=== PATIENT | male | born 1960 | race Caucasian/White ===

== ENCOUNTER 2020-10-25 08:58 | Observation (INO) | payer MEDICARE, SELFPAY ==
[2020-10-25] VITALS (7 sets, daily range): BP systolic 135–165; BP diastolic 86–108; PULSE 66–84; RESP 10–18; TEMP 36.1–36.9; O2SAT 96–100; BMI 30.1
--- NOTE | ~2020-10-25 | XR_ITS ---
EXAMINATION: XR CHEST CLINICAL INFORMATION: Nodule/vomiting/diarrhea and abdominal pain. COMPARISON: None TECHNIQUE: Frontal view of the chest was obtained. FINDINGS: No significant abnormality is noted involving the heart, lungs, mediastinum, bony thorax or soft tissues. XR/XR chest 1V IMPRESSION: Unremarkable chest examination.
--- NOTE | ~2020-10-25 | CT_ITS ---
EXAMINATION: CT ABDOMEN AND PELVIS WITH CONTRAST CLINICAL INFORMATION: Left-sided abdominal pain with diarrhea. C. difficile colitis? COMPARISON: 09/03/2018 TECHNIQUE: Multidetector volumetric images were obtained from the superior aspect of the liver through the pubic symphysis following administration 85 mL of Omnipaque 350 intravenous contrast. Sagittal and coronal reformatted images were obtained on the technologist's workstation. This CT examination was performed using dose optimization techniques as appropriate, variously including the following: *Automated exposure control *Adjustment of mA and/or kV according to patient size (this includes techniques or standardized protocols for targeted exams where dose is matched to indication/reason for exam; i.e. extremities or head) *Use of iterative reconstruction technique DLP: 559 mGy-cm FINDINGS: LUNG BASES: Normal. No pulmonary consolidation or pleural effusion at either lung base. LIVER: The liver has normal size, shape, and attenuation. No evidence of liver mass. There is focal steatosis in the left lobe adjacent to the falciform ligament. GALLBLADDER AND BILIARY TREE: Gallbladder is surgically absent. No dilated bile ducts. PANCREAS: Normal. No edema, pancreatic ductal dilatation or mass. SPLEEN: Normal. ADRENAL GLANDS: Normal. KIDNEYS AND URETERS: The kidneys have normal size and cortical thickness. No mass or perinephric fluid collection. No urolithiasis or hydroureteronephrosis. BLADDER: Normal. No calculi or wall thickening. BOWEL AND PERITONEUM: No dilated bowel loops. The appendix is not identified. No inflammatory changes in the right lower quadrant. The colon is underdistended. Multiple diverticula of the descending and sigmoid colon. No pericolonic fat stranding, ascites or pneumoperitoneum. The rectum and perirectal soft tissues are unremarkable. ABDOMINAL WALL: Unremarkable. VASCULATURE: Mild atherosclerotic calcification of the abdominal aorta without aneurysm. Inferior vena cava is normal. LYMPH NODES: No pathologic sized lymph nodes in the abdomen or pelvis. No inguinal lymphadenopathy. PELVIC VISCERA: Unremarkable. SKELETAL: Chronic multilevel degenerative disease of the visualized lower thoracic and lumbar spine. 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 There are old fractures of the S1 screws. CT/CT abdomen pelvis w con IMPRESSION: * No acute imaging abnormalities in the abdomen or pelvis compared to 09/03/2018. * Colonic diverticulosis without evidence of diverticulitis or colitis.
--- NOTE | 2020-10-25 09:25 | ECG_ITS ---
Test Reason : CP Blood Pressure : / mmHG Vent. Rate : 086 BPM Atrial Rate : 086 BPM P-R Int : 178 ms QRS Dur : 078 ms QT Int : 396 ms P-R-T Axes : 052 029 042 degrees QTc Int : 473 ms Normal sinus rhythm with sinus arrhythmia Septal infarct , age undetermined Abnormal ECG When compared with ECG of 22-NOV-2017 20:39, No significant change was found Referred By: Estelita Neff Electronically Signed By:VARSHA TAVARES
[2020-10-25] MEDS: Morphine Sulfate 4 MG/ML CARTRIDGE IVPUSH ×2 (10:22→14:41)
[2020-10-25] MEDS: ondansetron HCL 4 MG/2 ML VIAL IVPUSH ×2 (10:22→19:44)
[2020-10-25] MEDS: 0.9 % Sodium Chloride 1,000 ML 999 ML IVCONT ×2 (10:24→14:47)
--- NOTE | 2020-10-25 10:32 | PC.NURSE ---
pt alert and oriented. b/p running 170s over 110-116. Pt states he has been having episodes of yellow diarrhea, nausea, and vomiting since Monday. He was recently started on doxycycline for right leg infection. Pt reports that his aunt lives downstairs from him and has been having episodes of yellow diarrhea accompanied by a foul odor, nausea, and vomiting. pt also c/o of headache/dizziness/sob with exertion. No other symptoms reported.
[2020-10-25 11:12] LABS: Appearance Urine CLEAR; Color Urine YELLOW; Glucose Urine UA NEG (NEG); Leukocyte Esterase Urine NEG (NEG); Nitrite Urine NEG (NEG); Specific Gravity - Urine >= 1.030 (1.005-1.025); Urine Blood NEG (NEG); Urine Ketones >=80 MG/DL (NEG); Urine Protein TRACE MG/DL (NEG-TRACE)
[2020-10-25 11:26] LABS: MANUAL DIFF FLAG NO
[2020-10-25 11:28] LABS: Basophils Percent Auto 0.3 % (0-2); Eosinophils Absolute Auto 0.1 X10*3/uL (0.0-0.4); Eosinophils Percent Auto 1.3 % (0-4); Hematocrit 43.1 % (42-52); Hemoglobin 14.7 g/dl (14.0-18.0); Imm Gran Abs Auto 0.02 X10*3/uL (0.00-0.03); Imm Gran Pct Auto 0.3 % (0.0-0.4); Lymphocytes Absolute Auto 1.7 X10*3/uL (1.2-4.9); Lymphocytes Percent Auto 25.4 % (20-40); Mean Corpuscular HGB Conc 34.1 g/dl (31.0-36.0); Mean Corpuscular Hemoglobin 29.6 pg (27.0-33.0); Mean Corpuscular Volume 86.7 fL (80-98); Mean Platelet Volume 9.3 fL (9.4-12.4); Monocytes Absolute Auto 0.5 X10*3/uL (0.1-1.2); Monocytes Percent Auto 6.9 % (2-11); Neutrophils Absolute Auto 4.5 X10*3/uL (2.0-8.3); Neutrophils Percent Auto 65.8 % (45-73); Platelet Count 175 X10*3/uL (160-400); Red Blood Count 4.97 X10*6/uL (4.60-5.80); Red Cell Distribution Width 13.7 % (11.0-16.0); White Blood Count 6.8 X10*3/uL (4.8-10.8)
[2020-10-25 11:42] LABS: Alanine Aminotransferase 12 U/L (0-40); Albumin Level 3.7 g/dL (3.5-5.0); Alkaline Phosphatase 40 U/L (39-117); Anion Gap 13 (12-20); Aspartate Amino Transferase 15 U/L (5-37); Bilirubin Total 0.5 mg/dL (0.0-1.0); Blood Urea Nitrogen 16 mg/dL (9-16); Calcium 8.1 mg/dL (8.4-10.2); Carbon Dioxide 22 mmol/L (22-29); Chloride 108 mmol/L (96-108); Creatinine Clr Calc Pharmacy 99.2; Estimated Glomerular Filt Rate > 60; Glucose Random 92 mg/dL (60-115); Magnesium 1.8 mg/dL (1.6-2.6); Potassium 3.8 mmol/L (3.3-5.1); Sodium 139 mmol/L (135-145); Total Protein 5.8 g/dL (6.5-8.0)
[2020-10-25 11:47] LABS: Troponin-I High Sensitivity 11.8 ng/L (<3.5-35.0)
[2020-10-25 11:48] LABS: INTERNATIONAL NORM RATIO 1.2 (0.9-1.1); Prothrombin Time 13.2 SEC (9.9-13.0)
[2020-10-25] MEDS: iohexoL 350 MG/ML 100 ML INFUS..BTL IV (12:33)
[2020-10-25 12:35] LABS: CDiff Gene PCR NEGATIVE (Negative)
[2020-10-25 13:07] LABS: Troponin-I High Sensitivity 12.1 ng/L (<3.5-35.0)
--- NOTE | 2020-10-25 13:18 | ED_ITS ---
HPI - Abdominal Pain General Chief Complaint: Abdominal Pain Stated Complaint: ABD PAIN W/VOMITING,DIARRHEA Time Seen by Provider: 10/25/20 09:18 Source: patient Mode of arrival: ambulatory Limitations: no limitations History of Present Illness HPI narrative: 60-year-old male with a past medical history of kidney stones, vertigo, PTSD and anxiety disorder presenting to the ED with complaints of left upper/left flank/left lower quadrant abdominal pain with associated nausea/vomiting and fall yellow colored watery diarrhea for the past 6 days worse today where he is unable to keep anything down. He was recently seen at [facility] approximately 1 week and half ago for back pain was prescribed muscle relaxants and he had no symptomatic relief and he noticed that he developed a rash/redness to his leg therefore he went there for further evaluation treatment for a 2nd time and they thought that he could possibly have a cellulitis infection therefore they placed him on doxycycline and after taking approximat lázaro 4 total pills he developed nausea/vomiting/diarrhea and abdominal pain. He reports that his on Aunt lives downstairs from him had tested positive for C diff in April or May 2020 and she was treated although he recently went down to her her house to fix her television and when he went into her room she had a whole bunch of watery/yellow foul smelling diarrhea in her toilet although he did not think anything of it although now that he thinks about it he believes his diarrhea appears the same and he is concerned for C diff. He denies any fevers, chills, dizziness, headaches, chest pain or shortness of breath, dyspnea on exertion, orthopnea, palpitations, radiation of the abdominal pain, back pain at this time, dysuria, hematuria, black or bloody stools, abnormal penile discharge, recent travel or sick contacts or any other symptoms complaints or concerns at this time. MD elicited complaint: abdominal pain and other (N/V/D) Pertinent past history: none Onset (ago): day(s) (6 days worse today) Pain Consistency: constant Location: LUQ, LLQ and L flank Severity: severe Pain scale (0-10): 10 Quality: cramping and aching Radiation: none Migration to: no migration Exacerbating factors: eating Relieving factors: nothing Context: sick contacts and recent antibiotic use Associated symptoms: nausea, vomiting and diarrhea Related Data Home Medications Medication Instructions Recorded Confirmed atorvastatin 10 mg tablet 1 tab PO DAILY 10/25/20 10/25/20 doxycycline hyclate 100 mg capsule 1 cap PO BID 10/25/20 10/25/20 methocarbamol 750 mg tablet 2 tab PO TID 10/25/20 10/25/20 Allergies Allergy/AdvReac Type Severity Reaction Status Date / Time No Known Allergies Allergy Verified 10/25/20 09:26 Review of Systems Review of Systems Constitutional : Positive recent antibiotic usage and sick contacts, No Weight loss, No Fever, No Chills, No Night Sweats, No Fatigue, No Malaise ENT/Mouth: No ear pain, No sore throat, No Difficulty swallowing Cardiovascular : No Chest Pain, No SOB, No Dyspnea on Exertion, No Orthopnea, NoEdema, No Palpitations Respiratory : No Cough, No Sputum, No Wheezing, No Dyspnea Gastrointestinal : Positive nausea/vomiting/diarrhea/abdominal pain,No blood streaked emesis, No coffee-ground emesis, No gross hematemesis, No blood streak stool, No gross hematochezia, No Melena Genitourinary : No irregular bleeding, No Dysuria, No Urinary Frequency, No Hematuria,No Urinary Incontinence, No Urgency, No Flank Pain Musculoskeletal : No joint pain, No Myalgias, No Joint Swelling Skin : No Skin Lesions, No rash Neuro : No Weakness, No Numbness, No Paresthesias, No Loss of Consciousness, NoDizziness, No Headache Psych : No Social Issues, Heme/Lymph: No Bruising, No Bleeding,No Lymphadenopathy Endocrine : No Polyuria, No Polydipsia, No Temperature Intolerance Yes all other systems are reviewed and are negative Physical Exam Vital Signs: Vital Signs: Last Vital Signs Temp 98.5 F 10/25/20 10:39 Pulse 84 10/25/20 15:13 Resp 10 L 10/25/20 15:13 BP 163/106 H 10/25/20 15:13 Pulse Ox 97 10/25/20 15:13 Body Mass Index 30.1 vital signs have been reviewed as normal and appeared to be correct. Blood pressure hypertensive 165/108 Heart rate normal. Respiration rate normal. Temperature normal. Oxygen saturation normal. Appearance: Alert. Oriented X3. No acute distress. Head: Normal external exam. Normocephalic. Eyes: PERRLA. EOMI. Conjunctiva and sclera normal. Eyelids normal. ENT: Pharynx normal. Uvula midline. Moist mucous membranes. Neck: Normal inspection. Neck supple. FROM. No adenopathy. No meningeal signs. CVS: Normal heart rate and rhythm. Heart sound normal. No murmurs noted. Pulses normal throughout. Respiratory: No respiratory distress. Painless inspiration. Breath sounds normal. No wheezes/rales/rhonchi noted. Chest nontender. No accessory muscle usage noted or decreased air movement noted. Abdomen: Soft and moderate tenderness of patient with guarding to left upper quadrant/left flank/left lower quadrant. Nondistended. No guarding. No rigidity. Bowel sounds normal in all 4 quadrants. No distention noted. No orga nomegaly noted. No visible injury noted. No rebound tenderness. Negative Rovsing sign. Negative obturator's sign. Negative psoas sign. Negative Vázquez sign. Back: No CVA tenderness. Full range of motion noted. Skin: Skin warm and dry. Normal skin color. Normal skin turgor. No rashes/lesions/lacerations noted. Extremities: Extremities exhibit normal range of motion. Extremities nontender. Neuro: Oriented X 3. No motor deficit. No sensory deficit. Reflexes normal. Normal steady gait. Course Course Course Narrative: 9:30am - 60-year-old male presenting to the ED with complaints of left upper/left flank/left lower quadrant abdominal pain with associated nausea/vomiting and fall yellow colored watery diarrhea for the past 6 days worse today where he is unable to keep anything down. Recently seen at another facility and [facility] for lower back pain prescribed muscle relaxants. Developed a rash to his lower extremity he believes it could be from the CT scan bed therefore they placed an on doxycycline for possible cellulitis infection and he reports he took approximately 4 pills of doxycycline and since then he has been having nausea/vomiting, left upper/left flank/left lower quadrant abdominal pain and diarrhea. His aunt was positive for C diff in May of 2020. Although apparently she was treated. Although he reports that she recently had similar diarrhea to his. He denies recent travel or any other sick contacts. Plan: Labs, UA, CT scan abdomen pelvis with IV contrast, chest x-ray, COVID/RSV/flu swab, EKG. Provide a L of IV fluids, 4 mg of Zofran and 4 mg of morphine and re-evaluate. Reevaluation(s) Reevaluation #1: - labs returned and patient had elevated troponin at 11.8 rep eat troponin 3 hours able was negative delta at 12.1. Otherwise all other labs are within normal limits. - UA revealed 80 ketones otherwise no evidence of UTI. - C diff stool culture negative. - COVID/RSV/flu negative. - abdomen pelvis with IV contrast revealed colonic diverticulosis without eviden ce of diverticulitis or colitis otherwise no other acute processes were noted when compared to prior CT scan of abdomen and pelvis on 09/03/2018. - therefore I discussed this with the patient he reports that he does not feel comfortable going home due to he cannot tolerate anything by mouth and he is supposed to be on antibiotics for cellulitis infection to his lower extremity. - therefore will obtain blood cultures and plan to admit for intractable abdominal pain with associated nausea/vomiting/diarrhea. Patient was also noted to be hypertensive at 165/108 and repeat at 151/105 and he denies a history of high blood pressure. Therefore will give 5 mg of hydralazine at this time then re-evaluate. Patient understands agrees with this plan. Time: 13:46 [facility] - Abdominal Pain Medical Records Attestation: I reviewed the patient's medical records. Lab Data Attestation: I reviewed the patient's lab results. Result diagrams: 10/25/20 11:21 10/25/20 11:21 Labs: Lab Results 10/25/20 10/25/20 10/25/20 Range/Units 10:45 10:45 10:45 WBC (4.8-10.8) X10*3/uL RBC (4.60-5.80) X10*6/uL Hgb (14.0-18.0) g/dl Hct (42-52) % MCV (80-98) fL MCH (27.0-33.0) pg MCHC (31.0-36.0) g/dl RDW (11.0-16.0) % Plt Count (160-400) X10*3/uL MPV (9.4-12.4) fL Immature Gran % (Auto) (0.0-0.4) % Neut % (Auto) (45-73) % Lymph % (Auto) (20-40) % [place] % (Auto) (2-11) % Eos % (Auto) (0-4) % Baso % (Auto) (0-2) % Lymph # (Auto) (1.2-4.9) X10*3/uL [place] # (Auto) (0.1-1.2) X10*3/uL Eos # (Auto) (0.0-0.4) X10*3/uL Baso # (Auto) (0.0-0.2) X10*3/uL Abs Immat Gran (auto) (0.00-0.03) X10*3/uL Absolute Neuts (auto) (2.0-8.3) X10*3/uL Absolute Nucleated RBC (0.0-0.012) X10*3/uL Nucleated RBC % (auto) (0.0-0.2) /100WBC Hold Purple Top PT (9.9-13.0) SEC INR (0.9-1.1) Sodium (135-145) mmol/L Potassium (3.3-5.1) mmol/L Chloride (96-108) mmol/L Carbon Dioxide (22-29) mmol/L Anion Gap (12-20) BUN (9-16) mg/dL Creatinine (0.5-1.4) mg/dL Estim Creat Clear Calc Estimated GFR Random Glucose (60-115) mg/dL Calcium (8.4-10.2) mg/dL Magnesium (1.6-2.6) mg/dL Total Bilirubin (0.0-1.0) mg/dL AST (5-37) U/L ALT (0-40) U/L Alkaline Phosphatase (39-117) U/L Troponin I High Sens (<3.5-35.0) ng/L Total Protein (6.5-8.0) g/dL Albumin (3.5-5.0) g/dL Lipase (8-78) U/L Urine Color YELLOW Urine Appearance CLEAR Urine pH 6.0 (5.0-8.0) Ur Specific [place] >= 1.030 H (1.005-1.025) Urine Protein TRACE (NEG-TRACE) MG/DL Urine Glucose (UA) NEG (NEG) MG/DL Urine Ketones >=80 (NEG) MG/DL Urine Blood NEG (NEG) Urine Nitrite NEG (NEG) Ur Leukocyte Esterase NEG (NEG) Stool Leukocytes, Qual NEGATIVE (NEGATIVE) C. difficile Tox B Gene NEGATIVE (Negative) Coronavirus (PCR) (Negative) Influenza Type A (PCR) (Negative) Influenza Type B (PCR) (Negative) RSV RNA Qual (PCR) (Negative) 10/25/20 10/25/20 10/25/20 Range/Units 11:21 11:21 11:21 WBC 6.8 (4.8-10.8) X10*3/uL RBC 4.97 (4.60-5.80) X10*6/uL Hgb 14.7 (14.0-18.0) g/dl Hct 43.1 (42-52) % MCV 86.7 (80-98) fL MCH 29.6 (27.0-33.0) pg MCHC 34.1 (31.0-36.0) g/dl RDW 13.7 (11.0-16.0) % Plt Count 175 (160-400) X10*3/uL MPV 9.3 L (9.4-12.4) fL Immature Gran % (Auto) 0.3 (0.0-0.4) % Neut % (Auto) 65.8 (45-73) % Lymph % (Auto) 25.4 (20-40) % [place] % (Auto) 6.9 (2-11) % Eos % (Auto) 1.3 (0-4) % Baso % (Auto) 0.3 (0-2) % Lymph # (Auto) 1.7 (1.2-4.9) X10*3/uL [place] # (Auto) 0.5 (0.1-1.2) X10*3/uL Eos # (Auto) 0.1 (0.0-0.4) X10*3/uL Baso # (Auto) 0.0 (0.0-0.2) X10*3/uL Abs Immat Gran (auto) 0.02 (0.00-0.03) X10*3/uL Absolute Neuts (auto) 4.5 (2.0-8.3) X10*3/uL Absolute Nucleated RBC 0.000 (0.0-0.012) X10*3/uL Nucleated RBC % (auto) 0.0 (0.0-0.2) /100WBC Hold Purple Top SEE NOTE PT 13.2 H (9.9-13.0) SEC INR 1.2 H (0.9-1.1) Sodium (135-145) mmol/L Potassium (3.3-5.1) mmol/L Chloride (96-108) mmol/L Carbon Dioxide (22-29) mmol/L Anion Gap (12-20) BUN (9-16) mg/dL Creatinine (0.5-1.4) mg/dL Estim Creat Clear Calc Estimated GFR Random Glucose (60-115) mg/dL Calcium (8.4-10.2) mg/dL Magnesium (1.6-2.6) mg/dL Total Bilirubin (0.0-1.0) mg/dL AST (5-37) U/L ALT (0-40) U/L Alkaline Phosphatase (39-117) U/L Troponin I High Sens (<3.5-35.0) ng/L Total Protein (6.5-8.0) g/dL Albumin (3.5-5.0) g/dL Lipase (8-78) U/L Urine Color Urine Appearance Urine pH (5.0-8.0) Ur Specific [place] (1.005-1.025) Urine Protein (NEG-TRACE) MG/DL Urine Glucose (UA) (NEG) MG/DL Urine Ketones (NEG) MG/DL Urine Blood (NEG) Urine Nitrite (NEG) Ur Leukocyte Esterase (NEG) Stool Leukocytes, Qual (NEGATIVE) C. difficile Tox B Gene (Negative) Coronavirus (PCR) (Negative) Influenza Type A (PCR) (Negative) Influenza Type B (PCR) (Negative) RSV RNA Qual (PCR) (Negative) 10/25/20 10/25/20 10/25/20 Range/Units 11:21 11:21 12:41 WBC (4.8-10.8) X10*3/uL RBC (4.60-5.80) X10*6/uL Hgb (14.0-18.0) g/dl Hct (42-52) % MCV (80-98) fL MCH (27.0-33.0) pg MCHC (31.0-36.0) g/dl RDW (11.0-16.0) % Plt Count (160-400) X10*3/uL MPV (9.4-12.4) fL Immature Gran % (Auto) (0.0-0.4) % Neut % (Auto) (45-73) % Lymph % (Auto) (20-40) % [place] % (Auto) (2-11) % Eos % (Auto) (0-4) % Baso % (Auto) (0-2) % Lymph # (Auto) (1.2-4.9) X10*3/uL [place] # (Auto) (0.1-1.2) X10*3/uL Eos # (Auto) (0.0-0.4) X10*3/uL Baso # (Auto) (0.0-0.2) X10*3/uL Abs Immat Gran (auto) (0.00-0.03) X10*3/uL Absolute Neuts (auto) (2.0-8.3) X10*3/uL Absolute Nucleated RBC (0.0-0.012) X10*3/uL Nucleated RBC % (auto) (0.0-0.2) /100WBC Hold Purple Top PT (9.9-13.0) SEC INR (0.9-1.1) Sodium 139 (135-145) mmol/L Potassium 3.8 (3.3-5.1) mmol/L Chloride 108 (96-108) mmol/L Carbon Dioxide 22 (22-29) mmol/L Anion Gap 13 (12-20) BUN 16 (9-16) mg/dL Creatinine 0.84 (0.5-1.4) mg/dL Estim Creat Clear Calc 99.2 Estimated GFR > 60 Random Glucose 92 (60-115) mg/dL Calcium 8.1 L (8.4-10.2) mg/dL Magnesium 1.8 (1.6-2.6) mg/dL Total Bilirubin 0.5 (0.0-1.0) mg/dL AST 15 (5-37) U/L ALT 12 (0-40) U/L Alkaline Phosphatase 40 (39-117) U/L Troponin I High Sens 11.8 (<3.5-35.0) ng/L Total Protein 5.8 L (6.5-8.0) g/dL Albumin 3.7 (3.5-5.0) g/dL Lipase 21 (8-78) U/L Urine Color Urine Appearance Urine pH (5.0-8.0) Ur Specific [place] (1.005-1.025) Urine Protein (NEG-TRACE) MG/DL Urine Glucose (UA) (NEG) MG/DL Urine Ketones (NEG) MG/DL Urine Blood (NEG) Urine Nitrite (NEG) Ur Leukocyte Esterase (NEG) Stool Leukocytes, Qual (NEGATIVE) C. difficile Tox B Gene (Negative) Coronavirus (PCR) NEGATIVE (Negative) Influenza Type A (PCR) NEGATIVE (Negative) Influenza Type B (PCR) NEGATIVE (Negative) RSV RNA Qual (PCR) NEGATIVE (Negative) 10/25/20 Range/Units 12:41 WBC (4.8-10.8) X10*3/uL RBC (4.60-5.80) X10*6/uL Hgb (14.0-18.0) g/dl Hct (42-52) % MCV (80-98) fL MCH (27.0-33.0) pg MCHC (31.0-36.0) g/dl RDW (11.0-16.0) % Plt Count (160-400) X10*3/uL MPV (9.4-12.4) fL Immature Gran % (Auto) (0.0-0.4) % Neut % (Auto) (45-73) % Lymph % (Auto) (20-40) % [place] % (Auto) (2-11) % Eos % (Auto) (0-4) % Baso % (Auto) (0-2) % Lymph # (Auto) (1.2-4.9) X10*3/uL [place] # (Auto) (0.1-1.2) X10*3/uL Eos # (Auto) (0.0-0.4) X10*3/uL Baso # (Auto) (0.0-0.2) X10*3/uL Abs Immat Gran (auto) (0.00-0.03) X10*3/uL Absolute Neuts (auto) (2.0-8.3) X10*3/uL Absolute Nucleated RBC (0.0-0.012) X10*3/uL Nucleated RBC % (auto) (0.0-0.2) /100WBC Hold Purple Top PT (9.9-13.0) SEC INR (0.9-1.1) Sodium (135-145) mmol/L Potassium (3.3-5.1) mmol/L Chloride (96-108) mmol/L Carbon Dioxide (22-29) mmol/L Anion Gap (12-20) BUN (9-16) mg/dL Creatinine (0.5-1.4) mg/dL Estim Creat Clear Calc Estimated GFR Random Glucose (60-115) mg/dL Calcium (8.4-10.2) mg/dL Magnesium (1.6-2.6) mg/dL Total Bilirubin (0.0-1.0) mg/dL AST (5-37) U/L ALT (0-40) U/L Alkaline Phosphatase (39-117) U/L Troponin I High Sens 12.1 (<3.5-35.0) ng/L Total Protein (6.5-8.0) g/dL Albumin (3.5-5.0) g/dL Lipase (8-78) U/L Urine Color Urine Appearance Urine pH (5.0-8.0) Ur Specific [place] (1.005-1.025) Urine Protein (NEG-TRACE) MG/DL Urine Glucose (UA) (NEG) MG/DL Urine Ketones (NEG) MG/DL Urine Blood (NEG) Urine Nitrite (NEG) Ur Leukocyte Esterase (NEG) Stool Leukocytes, Qual (NEGATIVE) C. difficile Tox B Gene (Negative) Coronavirus (PCR) (Negative) Influenza Type A (PCR) (Negative) Influenza Type B (PCR) (Negative) RSV RNA Qual (PCR) (Negative) Imaging Data Chest x-ray: Attestation: I personally reviewed and interpreted this imaging study as follows: CT scan abdomen pelvis with IV contrast: Attestation: I personally reviewed and interpreted this imaging study as follows: Radiologist's impression: FINDINGS: LUNG BASES: Normal. No pulmonary consolidation or pleural effusion at either lung base.? LIVER: The liver has normal size, shape, and attenuation.? No evidence of liver mass. There is focal steatosis in the left lobe adjacent to the falciform ligament. GALLBLADDER AND BILIARY TREE: Gallbladder is surgically absent. No dilated bile ducts.? PANCREAS: Normal. No edema, pancreatic ductal dilatation or mass.? SPLEEN: Normal.? ADRENAL GLANDS: Normal.? KIDNEYS AND URETERS: The kidneys have normal size and cortical thickness. No mass or perinephric fluid collection. No urolithiasis or hydroureteronephrosis. BLADDER:? Normal. No calculi or wall thickening. BOWEL AND PERITONEUM: No dilated bowel loops. The appendix is not identified. No inflammatory changes in the right lower quadrant. The colon is underdistended. Multiple diverticula of the descending and sigmoid colon. No pericolonic fat stranding, ascites or pneumoperitoneum. The rectum and perirectal soft tissues are unremarkable. ABDOMINAL WALL: Unremarkable.? VASCULATURE: Mild atherosclerotic calcification of the abdominal aorta without aneurysm. Inferior vena cava is normal. LYMPH NODES: No pathologic sized lymph nodes in the abdomen or pelvis. No inguinal lymphadenopathy. PELVIC VISCERA: Unremarkable. SKELETAL: Chronic multilevel degenerative disease of the visualized lower thoracic and lumbar spine. 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 There are old fractures of the S1 screws. CT/CT abdomen pelvis w con IMPRESSION: *? No acute imaging abnormalities in the abdomen or pelvis compared to 09/03/2018. *? Colonic diverticulosis without evidence of diverticulitis or colitis. ECG Data Attestation: I personally reviewed and interpreted this ECG as follows: ECG interpretation date: 10/25/20 ECG interpretation time: 10:48 Interpretation: Normal sinus rhythm with sinus arrhythmia with ventricular rate of 86 with a normal [place] interval normal QRS duration normal QT/QTC interval. No acute ischemic change are noted. Similar when compared to prior EKG on November 22/2018. Critical Care Time Critical Care Time Critical Care Time: Yes Total Critical Care Time: 60 Attestation: I personally attest to this time spent taking care of the patient Discharge Plan Discharge Clinical Impression: Intractable abdominal pain, Intractable cyclical vomiting with nausea, Diarrhea, HBP (high blood pressure) Patient Disposition: Admitted As Inpatient Interventions: Admission Worksheet (ED) Last Done: 10/25/20 16:03 Discharge Date/Time: 10/25/20 16:05 [facility] Past Medical History Attestation statement: The following information was validated with the patient. Medical History Vertigo Surgical History H/O hernia repair History of cholecystectomy Social History Social History Use of substances other than those prescribed or required for medical reasons: No Advance Directives: No
[2020-10-25 13:42] LABS: Influenza A PCR NEGATIVE (Negative); Influenza B PCR NEGATIVE (Negative); Resp Syncy Virus RNA Qual PCR NEGATIVE (Negative); SARS COV2 PCR INHOUSE NEGATIVE (Negative)
[2020-10-25 14:03] LABS: Lipase 21 U/L (8-78)
[2020-10-25] MEDS: hydrALAZINE HCl 20 MG/ML VIAL 5 MG IVPUSH (14:44)
--- NOTE | 2020-10-25 14:44 | P.HPHOSP_ITS ---
History of Present Illness Date of Service: 10/25/20 Chief Complaint: ABD PAIN , VOMITING, DIARRHEA 60 years old male with PMH of PTSD, anxiety, vertigo who presents to the hospital complaining of abdominal pain, nausea and vomiting for the last 5 days or so. The patient reports he was using a lot of Aleve for back pain and he wanted to a CT scan recently which was negative for any acute findings in his back. He was prescribed muscle relaxant and while using Aleve multiple occasions during today's. His symptoms did not improve and he noticed left knee rash that was evaluated and treated as infection with antibiotics few days ago. He started doxycycline for 2 days then he started to intractable nausea, vomiting with associated watery diarrhea and abdominal pain with bloating. He denies any fever, chills, chest pain, palpitations, urinary symptoms. In the emergency blood work within normal, CT abdomen and pelvis negative for any acute findings. Admitted for observation. Review of Systems Review of Systems: No fever, chills but reports generalized weakness and increased anxiety No chest pain, palpitation No shortness of breath or coughing Generalized abdominal pain mainly in the upper area associated with nausea, vomiting and diarrhea No urinary symptoms Left knee rash PMFSH Medical History Vertigo Surgical History H/O hernia repair History of cholecystectomy Social History Use of substances other than those prescribed or required for medical reasons: No Advance Directives: No Meds Allergies Allergy/AdvReac Type Severity Reaction Status Date / Time No Known Allergies Allergy Verified 10/25/20 09:26 Active Medications: Current Medications Generic Name Dose Route Start Last Admin Trade Name Freq PRN Reason Stop Dose Admin Sodium Chloride 1,000 mls @ 999 mls/hr 10/25/20 13:45 Ns IVCONT 10/25/20 14:45 .[id number] [facility] Consult 1 each 10/25/20 13:34 Consult Rx Perform Med Rec MISCELLANE ONCE PRN Consult order Home Medications Medication Instructions Recorded Confirmed Last Taken Type atorvastatin 10 mg tablet 1 tab PO DAILY 10/25/20 10/25/20 Unknown History doxycycline hyclate 100 mg capsule 1 cap PO BID 10/25/20 10/25/20 10/24/20 History methocarbamol 750 mg tablet 2 tab PO TID 10/25/20 10/25/20 Unknown History Physical Exam Vital Signs and Narrative: Vital Signs: Last Vital Signs Temp 98.5 F 10/25/20 10:39 Pulse 74 10/25/20 10:39 Resp 17 10/25/20 10:39 BP 151/105 H 10/25/20 10:39 Pulse Ox 97 10/25/20 10:39 Body Mass Index 30.1 Const: Other: Constitutional : Alert, oriented, anxious, in mild distress Neck : Normal inspection, Supple Cardiovascular : RRR, S1 S2, no lower extremity edema Respiratory : Good bilateral air entry, no crackles, wheezes or rhonchi Gastrointestinal: soft, lax, Normal bowel sounds, mild tenderness in the epigastric area, no radiation, no surgical signs Skin : Warm, Dry, left knee multiple blisters Neurological : Alert & oriented x3, No focal deficit Results Labs CBC and Chem 7: 10/25/20 11:21 10/25/20 11:21 Labs: Laboratory Results - last 24 hr 10/25/20 10/25/20 10/25/20 10:45 10:45 11:21 MCV 86.7 MCH 29.6 MCHC 34.1 RDW 13.7 Plt Count 175 MPV 9.3 L Immature Gran % (Auto) 0.3 Neut % (Auto) 65.8 Lymph % (Auto) 25.4 [place] % (Auto) 6.9 Eos % (Auto) 1.3 Baso % (Auto) 0.3 Lymph # (Auto) 1.7 [place] # (Auto) 0.5 Eos # (Auto) 0.1 Baso # (Auto) 0.0 Abs Immat Gran (auto) 0.02 Absolute Neuts (auto) 4.5 Absolute Nucleated RBC 0.000 Nucleated RBC % (auto) 0.0 Hold Purple Top PT INR Anion Gap Estim Creat Clear Calc Estimated GFR Random Glucose Calcium Magnesium Total Bilirubin AST ALT Alkaline Phosphatase Troponin I High Sens Total Protein Albumin Lipase Urine Color YELLOW Urine Appearance CLEAR Urine pH 6.0 Ur Specific [place] >= 1.030 H Urine Protein TRACE Urine Glucose (UA) NEG Urine Ketones >=80 Urine Blood NEG Urine Nitrite NEG Ur Leukocyte Esterase NEG C. difficile Tox B Gene NEGATIVE Coronavirus (PCR) Influenza Type A (PCR) Influenza Type B (PCR) RSV RNA Qual (PCR) 10/25/20 10/25/20 10/25/20 11:21 11:21 11:21 MCV MCH MCHC RDW Plt Count MPV Immature Gran % (Auto) Neut % (Auto) Lymph % (Auto) [place] % (Auto) Eos % (Auto) Baso % (Auto) Lymph # (Auto) [place] # (Auto) Eos # (Auto) Baso # (Auto) Abs Immat Gran (auto) Absolute Neuts (auto) Absolute Nucleated RBC Nucleated RBC % (auto) Hold Purple Top SEE NOTE PT 13.2 H INR 1.2 H Anion Gap 13 Estim Creat Clear Calc 99.2 Estimated GFR > 60 Random Glucose 92 Calcium 8.1 L Magnesium 1.8 Total Bilirubin 0.5 AST 15 ALT 12 Alkaline Phosphatase 40 Troponin I High Sens Total Protein 5.8 L Albumin 3.7 Lipase 21 Urine Color Urine Appearance Urine pH Ur Specific [place] Urine Protein Urine Glucose (UA) Urine Ketones Urine Blood Urine Nitrite Ur Leukocyte Esterase C. difficile Tox B Gene Coronavirus (PCR) Influenza Type A (PCR) Influenza Type B (PCR) RSV RNA Qual (PCR) 10/25/20 10/25/20 10/25/20 11:21 12:41 12:41 MCV MCH MCHC RDW Plt Count MPV Immature Gran % (Auto) Neut % (Auto) Lymph % (Auto) [place] % (Auto) Eos % (Auto) Baso % (Auto) Lymph # (Auto) [place] # (Auto) Eos # (Auto) Baso # (Auto) Abs Immat Gran (auto) Absolute Neuts (auto) Absolute Nucleated RBC Nucleated RBC % (auto) Hold Purple Top PT INR Anion Gap Estim Creat Clear Calc Estimated GFR Random Glucose Calcium Magnesium Total Bilirubin AST ALT Alkaline Phosphatase Troponin I High Sens 11.8 12.1 Total Protein Albumin Lipase Urine Color Urine Appearance Urine pH Ur Specific [place] Urine Protein Urine Glucose (UA) Urine Ketones Urine Blood Urine Nitrite Ur Leukocyte Esterase C. difficile Tox B Gene Coronavirus (PCR) NEGATIVE Influenza Type A (PCR) NEGATIVE Influenza Type B (PCR) NEGATIVE RSV RNA Qual (PCR) NEGATIVE Imaging Radiologist's Impressions: Impressions Abdomen/Pelvis CT 10/25/20 09:58 IMPRESSION: * No acute imaging abnormalities in the abdomen or pelvis compared to 09/03/2018. * Colonic diverticulosis without evidence of diverticulitis or colitis. Chest X-Ray 10/25/20 12:20 IMPRESSION: Unremarkable chest examination. Assessment and Plan (1) Intractable abdominal pain: Status: Acute (2) Diarrhea: Status: Acute 60 years old male with PMH of PTSD, anxiety, vertigo who presents to the hospital complaining of abdominal pain, nausea and vomiting for the last 5 days or so. Intractable nausea and vomiting Abdominal pain, diarrhea Symptoms could be related to medications, gastroenteritis Use omeprazole for possible gastritis Zofran as needed for nausea Gentle hydration for now Clear liquids, advance as tolerated Skin rash Blisters at the left knee, itching Could be secondary to allergic reaction, possible infection To use cortisone treatment for now Hold on antibiotics and monitor progress DVT PPX Xarelto Quality Stroke Does the patient have a stroke diagnosis?: No VTE Prior VTE?: No VTE Risk Level:: Medical - moderate - high VTE Device Contraindication: Treatment Not Indicated VTE Drug Contraindication: N/A - Med Ordered
[2020-10-25] MEDS: Metoclopramide HCl 10 MG/2 ML VIAL IVPUSH (14:45)
[2020-10-25 14:56] LABS: Leukocytes Stool Qualitative NEGATIVE (NEGATIVE)
[2020-10-25] MEDS: Omeprazole 20 MG CAPSULE.DR PO (15:05)
[2020-10-25] MEDS: 0.9 % Sodium Chloride 1,000 ML 75 ML IVCONT (16:30)
[2020-10-25] MEDS: Simethicone 80 MG TAB.CHEW PO ×2 (16:34→21:43)
[2020-10-26] MEDS: Morphine Sulfate 4 MG/ML CARTRIDGE 2 MG IVPUSH (01:14)
[2020-10-26 03:30] VITALS: BP 136/90; PULSE 79; RESP 14; TEMP 37.2; O2SAT 99
[2020-10-26] MEDS: Omeprazole 20 MG CAPSULE.DR PO (05:33)
[2020-10-26] MEDS: 0.9 % Sodium Chloride 1,000 ML 75 ML IVCONT ×2 (05:36→19:05)
[2020-10-26 06:21] LABS: Anion Gap 12 (12-20); Blood Urea Nitrogen 11 mg/dL (9-16); Calcium 8.5 mg/dL (8.4-10.2); Carbon Dioxide 22 mmol/L (22-29); Chloride 107 mmol/L (96-108); Creatinine Clr Calc Pharmacy 106.8; Estimated Glomerular Filt Rate > 60; Glucose Random 84 mg/dL (60-115); Potassium 3.9 mmol/L (3.3-5.1); Sodium 137 mmol/L (135-145)
[2020-10-26 07:41] VITALS: BP 147/96; PULSE 74; RESP 18; TEMP 36.1; O2SAT 98
[2020-10-26] MEDS: Simethicone 80 MG TAB.CHEW PO ×4 (08:10→21:56)
[2020-10-26] MEDS: Atorvastatin Calcium 10 MG TABLET PO (08:10)
[2020-10-26] MEDS: Rivaroxaban 10 MG TABLET PO (08:10)
--- NOTE | 2020-10-26 09:26 | MHC.CM.PN ---
PATIENT LIVES ALONE. RECENTLY HE HAS STARTED USING A WALKER IN THE HOME. PATIENT REPORTS HIGH LEVELS OF ANXIETY AND WANTING TO FIX THE WORLD HE UNDERSTANDS HIS M.O.O.N. DELIVERY AND ASKS THIS BOX NAILER TO SIGN ON HIS BEHALF. JENNIFER LEFT BEDSIDE. PATIENT NAUSEAS AND STATES HE FEELS RACEY IF HE HAS HAD TOO MUCH SUGAR . DC PLAN TO BE DETERMINED. JENNIFER 10/26 IN CHART
--- NOTE | 2020-10-26 11:11 | P.PNIM_ITS ---
Subjective Subjective Date of Service: 10/26/20 Interval History: The patient was seen and evaluated this morning Laying in bed, still complaining of nausea, vomiting and diarrhea episodes Anxious, worried about his symptoms if something seriously wrong Denies any fever, chills or shortness of breath No reported other overnight events. Systemic review: No fever, chills but reports generalized weakness and increased anxiety No chest pain, palpitation No shortness of breath or coughing Generalized abdominal pain mainly in the upper area associated with nausea, vomiting and diarrhea No urinary symptoms Left knee rash improving Physical Exam Vital Signs: Vital Signs: Last Vital Signs Temp 97.0 F 10/26/20 07:41 Pulse 74 10/26/20 07:41 Resp 18 10/26/20 07:41 BP 147/96 H 10/26/20 07:41 Pulse Ox 98 10/26/20 07:41 Body Mass Index 30.1 Const: Other: Constitutional : Alert, oriented, anxious, in mild distress Neck : Normal inspection, Supple Cardiovascular : RRR, S1 S2, no lower extremity edema Respiratory : Good bilateral air entry, no crackles, wheezes or rhonchi Gastrointestinal: soft, lax, Normal bowel sounds,no tenderness, no radiation, no surgical signs Skin : Warm, Dry, left knee multiple blisters Neurological : Alert & oriented x3, No focal deficit Objective Data Active Medications Acetaminophen (Acetaminophen 325 Mg Tablet) 650 mg PO Q6H PRN PRN Reason: Pain, Mild (Pain Scale 1-3) Al Hydroxide/Mg Hydroxide (Magnesium Hydrox/Alum Hydrox 30 Ml Oral.Susp) 30 ml PO Q6H PRN PRN Reason: Dyspepsia Atorvastatin Calcium (Atorvastatin Calcium 10 Mg Tablet) 10 mg PO DAILY [facility] Last Admin: 10/26/20 08:10 Dose: 10 mg Documented by: SHANAE Sodium Chloride (Ns) 1,000 mls @ 75 mls/hr IVCONT .[id number] [facility] Last Admin: 10/26/20 05:36 Dose: 75 mls/hr Documented by: NASRIN Morphine Sulfate (Morphine Sulfate 4 Mg/Ml Cartridge) 2 mg IVPUSH Q4H PRN; Protocol PRN Reason: Pain, Severe (Pain Scale 7-10) Last Admin: 10/26/20 01:14 Dose: 2 mg Documented by: NASRIN Omeprazole (Omeprazole 20 Mg Capsule.Dr) 20 mg PO DAILY@0630 [facility] Last Admin: 10/26/20 05:33 Dose: 20 mg Documented by: NASRIN Ondansetron HCl (Ondansetron Hcl 4 Mg/2 Ml Vial) 4 mg IVPUSH Q8H PRN PRN Reason: Nausea and Vomiting Last Admin: 10/25/20 19:44 Dose: 4 mg Documented by: NASRIN Pharmacy Consult (Consult Rx Perform Med Rec) 1 each MISCELLANE ONCE PRN PRN Reason: Consult order Rivaroxaban (Rivaroxaban 10 Mg Tablet) 10 mg PO DAILY [facility] Last Admin: 10/26/20 08:10 Dose: 10 mg Documented by: SHANAE Simethicone (Simethicone 80 Mg Tab.Chew) 80 mg PO QIDWMHS [facility] Last Admin: 10/26/20 08:10 Dose: 80 mg Documented by: SHANAE Sodium Chloride (0.9 % Sodium Chloride Flush 3 Ml Syringe) 3 ml IVFLUSH QSHIFT [facility] Last Admin: 10/26/20 08:10 Dose: Not Given Documented by: SHANAE Non-Admin Reason: IV Running Triamcinolone Acetonide (Triamcinolone Acet 0.5 % Oint 15 Gm Tube) 1 appl TOPICAL BID [facility] Last Admin: 10/26/20 08:13 Dose: Not Given Documented by: SHANAE Non-Admin Reason: Med Not Available Labs CBC & Chem 7: 10/25/20 11:21 10/26/20 05:33 Labs: Laboratory Results - last 24 hr 10/25/20 10/25/20 10/25/20 10:45 10:45 10:45 MCV MCH MCHC RDW Plt Count MPV Immature Gran % (Auto) Neut % (Auto) Lymph % (Auto) [place] % (Auto) Eos % (Auto) Baso % (Auto) Lymph # (Auto) [place] # (Auto) Eos # (Auto) Baso # (Auto) Abs Immat Gran (auto) Absolute Neuts (auto) Absolute Nucleated RBC Nucleated RBC % (auto) Hold Purple Top PT INR Anion Gap Estim Creat Clear Calc Estimated GFR Random Glucose Calcium Magnesium Total Bilirubin AST ALT Alkaline Phosphatase Troponin I High Sens Total Protein Albumin Lipase Urine Color YELLOW Urine Appearance CLEAR Urine pH 6.0 Ur Specific [place] >= 1.030 H Urine Protein TRACE Urine Glucose (UA) NEG Urine Ketones >=80 Urine Blood NEG Urine Nitrite NEG Ur Leukocyte Esterase NEG Stool Leukocytes, Qual NEGATIVE C. difficile Tox B Gene NEGATIVE Coronavirus (PCR) Influenza Type A (PCR) Influenza Type B (PCR) RSV RNA Qual (PCR) 10/25/20 10/25/20 10/25/20 11:21 11:21 11:21 MCV 86.7 MCH 29.6 MCHC 34.1 RDW 13.7 Plt Count 175 MPV 9.3 L Immature Gran % (Auto) 0.3 Neut % (Auto) 65.8 Lymph % (Auto) 25.4 [place] % (Auto) 6.9 Eos % (Auto) 1.3 Baso % (Auto) 0.3 Lymph # (Auto) 1.7 [place] # (Auto) 0.5 Eos # (Auto) 0.1 Baso # (Auto) 0.0 Abs Immat Gran (auto) 0.02 Absolute Neuts (auto) 4.5 Absolute Nucleated RBC 0.000 Nucleated RBC % (auto) 0.0 Hold Purple Top SEE NOTE PT 13.2 H INR 1.2 H Anion Gap Estim Creat Clear Calc Estimated GFR Random Glucose Calcium Magnesium Total Bilirubin AST ALT Alkaline Phosphatase Troponin I High Sens Total Protein Albumin Lipase Urine Color Urine Appearance Urine pH Ur Specific [place] Urine Protein Urine Glucose (UA) Urine Ketones Urine Blood Urine Nitrite Ur Leukocyte Esterase Stool Leukocytes, Qual C. difficile Tox B Gene Coronavirus (PCR) Influenza Type A (PCR) Influenza Type B (PCR) RSV RNA Qual (PCR) 10/25/20 10/25/20 10/25/20 11:21 11:21 12:41 MCV MCH MCHC RDW Plt Count MPV Immature Gran % (Auto) Neut % (Auto) Lymph % (Auto) [place] % (Auto) Eos % (Auto) Baso % (Auto) Lymph # (Auto) [place] # (Auto) Eos # (Auto) Baso # (Auto) Abs Immat Gran (auto) Absolute Neuts (auto) Absolute Nucleated RBC Nucleated RBC % (auto) Hold Purple Top PT INR Anion Gap 13 Estim Creat Clear Calc 99.2 Estimated GFR > 60 Random Glucose 92 Calcium 8.1 L Magnesium 1.8 Total Bilirubin 0.5 AST 15 ALT 12 Alkaline Phosphatase 40 Troponin I High Sens 11.8 Total Protein 5.8 L Albumin 3.7 Lipase 21 Urine Color Urine Appearance Urine pH Ur Specific [place] Urine Protein Urine Glucose (UA) Urine Ketones Urine Blood Urine Nitrite Ur Leukocyte Esterase Stool Leukocytes, Qual C. difficile Tox B Gene Coronavirus (PCR) NEGATIVE Influenza Type A (PCR) NEGATIVE Influenza Type B (PCR) NEGATIVE RSV RNA Qual (PCR) NEGATIVE 10/25/20 10/26/20 12:41 05:33 MCV MCH MCHC RDW Plt Count MPV Immature Gran % (Auto) Neut % (Auto) Lymph % (Auto) [place] % (Auto) Eos % (Auto) Baso % (Auto) Lymph # (Auto) [place] # (Auto) Eos # (Auto) Baso # (Auto) Abs Immat Gran (auto) Absolute Neuts (auto) Absolute Nucleated RBC Nucleated RBC % (auto) Hold Purple Top PT INR Anion Gap 12 Estim Creat Clear Calc 106.8 Estimated GFR > 60 Random Glucose 84 Calcium 8.5 Magnesium Total Bilirubin AST ALT Alkaline Phosphatase Troponin I High Sens 12.1 Total Protein Albumin Lipase Urine Color Urine Appearance Urine pH Ur Specific [place] Urine Protein Urine Glucose (UA) Urine Ketones Urine Blood Urine Nitrite Ur Leukocyte Esterase Stool Leukocytes, Qual C. difficile Tox B Gene Coronavirus (PCR) Influenza Type A (PCR) Influenza Type B (PCR) RSV RNA Qual (PCR) Assessment and Plan (1) Intractable abdominal pain: Status: Acute (2) Intractable cyclical vomiting with nausea: Status: Acute (3) Diarrhea: Status: Acute Assessment and Plan: 60 years old male with PMH of PTSD, anxiety, vertigo who presents to the hospital complaining of abdominal pain, nausea and vomiting for the last 5 days or so. Intractable nausea and vomiting Abdominal pain, diarrhea Symptoms could be related to medications, gastroenteritis Use omeprazole for possible gastritis Zofran as needed for nausea DC IVF Advance as tolerated to gluten free diet Reglan around meal time Imodium prn Skin rash Blisters at the left knee, itching Could be secondary to allergic reaction, possible infection imrpving with steroids usage Hold on antibiotics and monitor progress DVT PPX Xarelto Quality Stroke Does the patient have a stroke diagnosis?: No VTE Prior VTE?: No VTE Risk Level:: Medical - moderate - high VTE Device Contraindication: Treatment Not Indicated VTE Drug Contraindication: N/A - Med Ordered
[2020-10-26 11:39] VITALS: BP 140/98; PULSE 80; RESP 18; TEMP 36.6; O2SAT 100
[2020-10-26] MEDS: Metoclopramide HCl 5 MG TABLET PO ×3 (12:47→21:55)
[2020-10-26 15:44] VITALS: BP 140/91; PULSE 73; RESP 18; TEMP 36.2; O2SAT 98
[2020-10-26 19:29] VITALS: BP 159/101; PULSE 72; RESP 18; TEMP 36.6; O2SAT 99
[2020-10-26] MEDS: Triamcinolone Acet 0.5 % Oint 15 GM TUBE 1 APPL TOPICAL (21:55)
[2020-10-26 23:43] VITALS: BP 149/99; PULSE 101; RESP 17; TEMP 36.3; O2SAT 97
[2020-10-27] MEDS: 0.9 % Sodium Chloride Flush 3 ML SYRINGE IVFLUSH ×2 (00:30→08:07)
[2020-10-27] MEDS: Morphine Sulfate 4 MG/ML CARTRIDGE 2 MG IVPUSH ×2 (00:37→08:06)
[2020-10-27 03:58] VITALS: BP 172/95; PULSE 74; RESP 17; TEMP 36.6; O2SAT 95
[2020-10-27] MEDS: ondansetron HCL 4 MG/2 ML VIAL IVPUSH (04:20)
[2020-10-27] MEDS: Omeprazole 20 MG CAPSULE.DR PO (06:39)
[2020-10-27 07:22] VITALS: BP 134/79; PULSE 78; RESP 16; TEMP 37; O2SAT 96
[2020-10-27] MEDS: Atorvastatin Calcium 10 MG TABLET PO (08:07)
[2020-10-27] MEDS: Metoclopramide HCl 5 MG TABLET PO ×2 (08:07→12:11)
[2020-10-27] MEDS: Rivaroxaban 10 MG TABLET PO (08:07)
[2020-10-27] MEDS: Escitalopram Oxalate 10 MG TABLET PO (08:07)
[2020-10-27] MEDS: Simethicone 80 MG TAB.CHEW PO ×2 (08:07→12:11)
--- NOTE | 2020-10-27 09:31 | MHC.CM.PN ---
PLAN IS HOME TODAY WITH NO SERVICES. RN AWARE.
--- NOTE | 2020-10-27 11:17 | PM.DS ---
DS: Providers Provider Date of Service: 10/27/20 Date of admission: 10/25/20 14:37 Primary care physician: Chalino Armijo MD DS: Diagnosis Discharge Diagnosis (1) Intractable abdominal pain: Status: Acute (2) Intractable cyclical vomiting with nausea: Status: Acute (3) Diarrhea: Status: Acute (4) Anxiety disorder: Status: Acute DS: Summary Hospital Course Hospital Course: Admission note HPI 60 years old male with PMH of PTSD, anxiety, vertigo who presents to the hospital complaining of abdominal pain, nausea and vomiting for the last 5 days or so. The patient reports he was using a lot of Aleve for back pain and he wanted to a CT scan recently which was negative for any acute findings in his back.? He was prescribed muscle relaxant and while using Aleve multiple occasions during today's.? His symptoms did not improve and he noticed left knee rash that was evaluated and treated as infection with antibiotics few days ago.? He started doxycycline for 2 days then he started to intractable nausea, vomiting with associated watery diarrhea and abdominal pain with bloating. He denies any fever, chills, chest pain, palpitations, urinary symptoms. In the emergency blood work within normal, CT abdomen and pelvis negative for any acute findings.? Admitted for observation. Hospital course The patient was admitted to the hospital for evaluation of intractable nausea and vomiting associated with diarrhea. Blood work negative for any source of infection. Stool studies negative for infection and C diff. CT scan did not show any acute findings in the abdomen. Treated with symptomatic measures for possible food poisoning or drug side effect as he was on doxycycline for presumed to skin infection. Treated with IV fluid, nausea medication and advancing the diet as tolerated over the course of hospital stay with good response. Skin rash thought to be secondary to allergic reaction and treated with topical steroids with good response. Patient was evaluated for increased anxiety. Started on escitalopram for generalized anxiety disorder with a plan to follow-up with his primary care within 2 weeks to revisit the medications. Pending transglutamine IgA study. Discharge plan To use tylenol for pain, avoid Aleve and take it once daily if needed Use Reglan as needed for nausea, Simethicone for gas Cortisone ointment for skin rash Start Escitalopram for anxeity Try Glutein free diet for the time being and build up regular diet slowly, watch for gas and bloating Symptoms To follow up with PCP within 2 weeks to address new medications and further evaluation Time Spent with Patient Time attestation: Total time spent providing and/or coordinating discharge services: Discharge coordination time: Greater than 30 minutes Quality: Stroke Does the patient have a stroke diagnosis?: No Physical Exam Vital Signs: Vital Signs: Last Vital Signs Temp 98.6 F 10/27/20 07:22 Pulse 78 10/27/20 07:22 Resp 16 10/27/20 07:22 BP 134/79 10/27/20 07:22 Pulse Ox 96 10/27/20 07:22 Body Mass Index 30.1 Const: Other: Constitutional : Alert, oriented Neck : Normal inspection, Supple Cardiovascular : RRR, S1 S2, no lower extremity edema Respiratory : Good bilateral air entry, no crackles, wheezes or rhonchi Gastrointestinal: soft, lax, Normal bowel sounds,no tenderness, no radiation, no surgical signs Skin : Warm, Dry, left knee multiple blisters Neurological : Alert & oriented x3, No focal deficit DS: Data Data Completed and Pending Labs on day of discharge: Preliminary micro results at discharge 10/25/20 10:45 Stool Culture - Preliminary Stool Normal so far. 10/25/20 15:37 Blood Culture - Preliminary Blood - Venous No growth after 24 hours. 10/25/20 15:37 Blood Culture - Preliminary Blood - Venous No growth after 24 hours. Discharge Plan Discharge Patient Disposition: Home, Self-Care Referrals: Chalino Armijo MD [Primary Care Provider] - 1 Week Discharge Medications: New omeprazole 20 mg Capsule,Delayed Release(Dr/Ec) 20 mg PO DAILY@0630 30 Days Qty: 30 RF: 0 simethicone [Gas Relief (simethicone)] 80 mg Tablet,Chewable 80 mg PO QIDWMHS PRN (Reason: bloatin, Gas) Qty: 30 RF: 0 escitalopram oxalate 10 mg Tablet 10 mg PO DAILY 30 Days Qty: 30 RF: 0 triamcinolone acetonide 0.5 % Ointment 1 appl topical BID 7 Days RF: 0 metoclopramide HCl 5 mg Tablet 5 mg PO QIDACHS PRN (Reason: Nausea And Vomiting) 15 Days RF: 0 Continued atorvastatin 10 mg tablet 1 tab PO DAILY RF: 0 methocarbamol 750 mg tablet 2 tab PO TID RF: 0 Discontinued doxycycline hyclate 100 mg capsule 1 cap PO BID RF: 0 Discharge Orders: Discharge Order (Routine); Ordered 10/27/20 Ordered By: Geremias Richter Diet: advance to usual diet Activity on Discharge: As tolerated Stand Alone Forms: Patient Portal Discharge page Care Plan Goals: Read below Health Concerns: Read below Plan of Treatment: You were admitted to the hospital for evaluation of nausea, vomiting and diarrhea. Treated with symptomatic measures as CT scan and blood work were negative for acute infection. Assessment: To use tylenol for pain, avoid Aleve and take it once daily if needed Use Reglan as needed for nausea, Simethicone for gas Cortisone ointment for skin rash Start Escitalopram for anxeity Try lutein free diet for the time being and build up your regular diet slowly, watch for gas and bloating S symptoms To follow up with PCP within 2 weeks to address new medications and further evaluation
[2020-10-29 01:17] LABS: Transglutaminase IgA 1 U/mL
== END 2020-10-27 12:43 | disposition home or self-care (01) ==
LOC: HO.ED 13:53 → HO.EDOVER 15:03 → HO.S3 15:11
PROVIDERS: Physician Assistant Medical; Admitting Provider Student in an Organized Health Care Education/Training Program; Emergency Provider Emergency Medicine; PCP Internal Medicine; Visit Provider Student in an Organized Health Care Education/Training Program
DX: R10.12 Left upper quadrant pain (principal); R10.32 Left lower quadrant pain; R19.7 Diarrhea, unspecified; R10.9 Unspecified abdominal pain; R11.15 Cyclical vomiting syndrome unrelated to migraine; I10 Essential (primary) hypertension; I70.0 Atherosclerosis of aorta; R42 Dizziness and giddiness; K76.0 Fatty (change of) liver, not elsewhere classified; F41.9 Anxiety disorder, unspecified; F43.10 Post-traumatic stress disorder, unspecified; Z20.822 Contact with and (suspected) exposure to COVID-19; Z90.49 Acquired absence of other specified parts of digestive tract; Z87.442 Personal history of urinary calculi; Z79.899 Other long term (current) drug therapy
CPT/HCPCS: 0241U; 36415; 71045; 74177; 80048; 80053; 81003; 83516; 83690; 83735; 84484; 85025; 85610; 87040; 87045; 87046; 87493; 89055; 93005; 96361; 96374; 96375; 96376; 99218; 99225; 99285; 99291; J2270; J2405; J2765; Q9967

== ENCOUNTER 2023-07-10 00:44 | Observation (INO) | payer MEDICARE, SELFPAY ==
[2023-07-10] VITALS (10 sets, daily range): BP systolic 112–140; BP diastolic 68–100; PULSE 68–95; RESP 14–18; TEMP 36.4–37.3; O2SAT 94–99; BMI 32.9; BMI 31.9
--- NOTE | 2023-07-10 | ECG_ITS ---
Test Reason : CHEST PAIN Blood Pressure : / mmHG Vent. Rate : 093 BPM Atrial Rate : 093 BPM P-R Int : 180 ms QRS Dur : 072 ms QT Int : 384 ms P-R-T Axes : 027 -07 006 degrees QTc Int : 477 ms Normal sinus rhythm Low voltage QRS Cannot rule out Anteroseptal infarct (cited on or before 25-OCT-2020) Abnormal ECG When compared with ECG of 25-OCT-2020 10:48, Questionable change in initial forces of Anterior leads Inverted T waves have replaced nonspecific T wave abnormality in Inferior leads Referred By: Generic ED Physician Electronically Signed By:Pedrito Turcios
--- NOTE | ~2023-07-10 | CT_ITS ---
EXAMINATION: CT HEAD WITHOUT CONTRAST CLINICAL INFORMATION: Dizziness. COMPARISON: None available. TECHNIQUE: Contiguous axial imaging was performed from the skull base to vertex without intravenous administration of contrast. This CT examination was performed using dose optimization techniques as appropriate, variously including the following: *Automated exposure control *Adjustment of mA and/or kV according to patient size (this includes techniques or standardized protocols for targeted exams where dose is matched to indication/reason for exam; i.e. extremities or head) *Use of iterative reconstruction technique DLP: 702 mGy-cm FINDINGS: The lateral, third and fourth ventricles are normally outlined. The cortical sulci and basal cisterns are normally outlined as well. There is no acute territorial defect, hemorrhage or midline shift. The extra-axial spaces are unremarkable. Calvarium/scalp: Intact. Maxillofacial sinuses and mastoids: Clear as visualized. CT/CT head/brain wo IV con IMPRESSION: No acute intracranial pathology.
--- NOTE | ~2023-07-10 | MR_ITS ---
EXAMINATION: MR BRAIN WITHOUT CONTRAST CLINICAL INFORMATION: Assess for posterior stroke. Dizziness. COMPARISON: CT scan of the head earlier 07/10/2023. TECHNIQUE: MRI of the brain was obtained using routine sequences without contrast. FINDINGS: No diffusion abnormalities are identified to suggest an acute or subacute infarct. No mass effect or midline shift is seen. There is mild commensurate prominence of the ventricles and sulci. There are scattered areas of increased T2 and FLAIR signal in the periventricular and subcortical white matter, most consistent with chronic microvascular ischemic changes. No extra-axial fluid collections are seen. The brainstem appears normal. No pathologic magnetic susceptibility artifact is identified on the gradient refocused acquisition. The cerebellar tonsils have normal contour and position, and the craniocervical junction appears normal. Marrow signal and midline structures are normal. The major intracranial flow-voids at the level of the [place] are preserved. The dural venous sinus flow-voids are maintained. There have been bilateral lens extractions. The mastoid air cells are well-aerated. There is mild periosteal thickening in the bilateral ethmoid sinuses. MR/MR head/brain wo con IMPRESSION: 1. There are no acute bleeds or territorial infarcts. No masses are demonstrated. 2. There are chronic microvascular ischemic changes and there is diffuse volume loss.
[2023-07-10 01:11] LABS: MANUAL DIFF FLAG NO
[2023-07-10 01:12] LABS: Basophils Percent Auto 0.3 % (0-2); Eosinophils Percent Auto 0.3 % (0-4); Hematocrit 46.6 % (42.0-52.0); Hemoglobin 16.4 g/dl (14.0-18.0); Imm Gran Abs Auto 0.04 X10*3/uL (0.00-0.03); Imm Gran Pct Auto 0.4 % (0.0-0.4); Lymphocytes Absolute Auto 1.5 X10*3/uL (1.2-4.9); Lymphocytes Percent Auto 13.5 % (20-40); Mean Corpuscular HGB Conc 35.2 g/dl (31.0-36.0); Mean Corpuscular Hemoglobin 30.3 pg (27.0-33.0); Mean Corpuscular Volume 86.1 fL (80.0-98.0); Mean Platelet Volume 9.2 fL (9.4-12.4); Monocytes Absolute Auto 0.6 X10*3/uL (0.1-1.2); Monocytes Percent Auto 5.5 % (2-11); Neutrophils Absolute Auto 8.6 x10*3/uL (2.0-8.3); Platelet Count 204 X10*3/uL (160-400); Red Blood Count 5.41 X10*6/uL (4.60-5.80); Red Cell Distribution Width 13.4 % (11.0-16.0); White Blood Count 10.7 X10*3/uL (4.8-10.8)
[2023-07-10 01:27] LABS: Alanine Aminotransferase 25 U/L (0-40); Albumin Level 4.2 g/dL (3.5-5.0); Alkaline Phosphatase 42 U/L (39-117); Anion Gap 14 (12-20); Aspartate Amino Transferase 20 U/L (5-37); Bilirubin Total 0.7 mg/dL (0.0-1.0); Blood Urea Nitrogen 16 mg/dL (9-16); Calcium 9.3 mg/dL (8.4-10.2); Carbon Dioxide 21 mmol/L (22-29); Chloride 109 mmol/L (96-108); Creatinine Clr Calc Pharmacy 89.2; Estimated Glomerular Filt Rate > 60; Glucose Random 134 mg/dL (60-115); Potassium 4.1 mmol/L (3.3-5.1); Sodium 140 mmol/L (135-145); Total Protein 6.9 g/dL (6.5-8.0)
[2023-07-10 01:34] LABS: Troponin-I High Sensitivity 26.4 ng/L (<3.5-35.0)
--- NOTE | 2023-07-10 01:45 | PC.NURSE ---
pt brought to ed5 from via wheelchair. pt reports dizziness with position changes, assisted into stretcher. changed over to hospital gown placed on heart monitor. nsr on monitor st segment wnl. attempt to obtain orthostatics however patient intolerable d/t dizziness. vitals stable in semi fowlers position. iv established. Dr. Salmeron notified of sx. 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 pt reports he felt fine yesterday, worked around the house/yard however woke up this afternoon with dizziness & intermittent cp/sob. pt reports some blurry vision. no focal deficits noted of BUE & BLE. no facial droop. PERRLA. axox4. speaking full clear sentences however pt verbalizes he feels he is having difficulty focusing/finding appropriate words. previous trop slightly elevated, per Dr. Salmeron approval repeat ordered for 030. call haider within reach. awaiting further orders at this time.
[2023-07-10 01:49] LABS: Influenza A PCR NEGATIVE (Negative); Influenza B PCR NEGATIVE (Negative); Resp Syncy Virus RNA Qual PCR NEGATIVE (Negative); SARS COV2 PCR INHOUSE NEGATIVE (Negative)
--- NOTE | 2023-07-10 01:53 | ED.DIZZY ---
HPI - Dizziness General Chief Complaint: Dizziness Stated Complaint: chest pain Time Seen by Provider: 07/10/23 01:53 Source: patient Mode of arrival: ambulatory Limitations: no limitations History of Present Illness ED Provider: Dr. Ethan Salmeron HPI Narrative: 62-year-old male with a history of PTSD, vertigo, kidney stones and anxiety who presents emergency department for evaluation of dizziness and chest pain. Patient states that he woke up earlier yesterday morning and was feeling fine. In the afternoon he took a nap and when he woke up from his nap he had dizziness. He describes the dizziness as a room spinning sensation. He states that the dizziness is worse with position change however when he is at rest he still feels dizzy. He states that this dizziness is different than his vertigo dizziness since his vertigo dizziness usually goes away and has not been persistent when he is at rest. He also states he has had blurred vision and is having difficulty finding words. He also complains of weakness. Patient states that around 18:00 hours he had a gradual onset of chest pain. Describes the pain is a constant, pain located in his ribs bilaterally. Does feel short of breath. He got diaphoretic. He had nausea but no vomiting. The pain does not radiate to his neck, jaw or back. Patient states that he drove himself here to the emergency department but was having difficulty driving secondary to his dizziness. Related Data Home Medications ?Medication ?Instructions ?Recorded ?Confirmed atorvastatin 10 mg tablet 1 tab PO DAILY 10/25/20 10/25/20 methocarbamol 750 mg tablet 2 tab PO TID 10/25/20 10/25/20 Previous Rx's ?Medication ?Instructions ?Recorded escitalopram oxalate 10 mg tablet 10 mg PO DAILY 30 days #30 tabs 10/27/20 metoclopramide HCl 5 mg tablet 5 mg PO QIDACHS PRN Nausea And 10/27/20 Vomiting 15 days omeprazole 20 mg capsule,delayed 20 mg PO DAILY@0630 30 days #30 10/27/20 release caps simethicone 80 mg chewable tablet 80 mg PO QIDWMHS PRN bloatin, Gas 10/27/20 (Gas Relief (simethicone)) #30 tabs triamcinolone acetonide 0.5 % 1 appl topical BID 7 days 10/27/20 topical ointment Allergies Allergy/AdvReac Type Severity Reaction Status Date / Time No Known Allergies Allergy Verified 07/10/23 00:55 Review of Systems Review of Systems: Yes all other systems are reviewed and are negative [facility] Past Medical History [facility] Narrative: Social history: Patient denies tobacco, alcohol and drug use. Medical History Vertigo Surgical History H/O hernia repair History of cholecystectomy Social History Social History Patient Tobacco Use Status: Never used Tobacco Advance Directives: No Advance Directives Information Provided: No Do you have a plan to hurt others: No Plan Current occupational status: employed Physical Exam Vital Signs: Vital Signs: Last Vital Signs Temp 97.6 F 07/10/23 01:45 Pulse 79 07/10/23 01:45 Resp 18 07/10/23 01:45 BP 140/83 H 07/10/23 01:45 Pulse Ox 99 07/10/23 01:45 O2 Del Method Room Air 07/10/23 01:45 BMI result Body Mass Index 32.9 Vital signs revealed an elevated blood pressure of 140/83 otherwise unremarkable Exam: General: Awake, alert, does seem to have difficulty with word finding and answering questions Head: Normocephalic, atraumatic EENT: PERRL, Lids normal, sclera normal, conjunctiva normal, nose normal , ears normal, throat without erythema or exudates Neck: Supple, no adenopathy Lung: breath sounds symmetric, no wheezing, rales or rhonchi Chest: symmetric movement, nontender Heart: regular rate and rhythm, normal S1, S2 no murmurs or rubs Abdomen: soft, non-tender, nondistended, normal bowel sounds Back: no vertebral tenderness, no CVAT Extremities: no deformities, moves all extremities symmetrically Neuro: General: Awake, alert, oriented, patient does seem to pause when he answers questions and does have difficulty with word finding, Cranial nerves: 2 through 12 intact. Cerebellar: Have lateral nystagmus. He is very slow with uiowgg-lu-ryaq-to-finger and rapid finger movement. He had normal heel to mock. On standing he felt very dizzy and needed to sit down and was unable to try to walk. Psych: Pleasant, cooperative NIH Stroke Scale Time: 02:19 Level of Consciousness: Alert Level of Consciousness Questions: Answers both questions correctly Level of Consciousness Commands: Performs both tasks correctly Best Gaze: Normal Visual: No visual loss Facial Palsy: Normal Motor Arm (Right): No drift Motor Arm (Left): No drift Motor Leg (Right): No drift Motor Leg (Left): No drift Limb Ataxia: Present in two limbs Sensory: Normal Best Language: Mild to moderate aphasia Dysarthia: Normal Extinction and Inattention: No abnormality Score: 3 Medications Administered Discontinued Medications Generic Name Dose Route Start Last Admin Trade Name Andreq PRN Reason Stop Dose Admin Lorazepam 2 mg 07/10/23 02:19 07/10/23 03:09 Lorazepam 1 Mg Tablet PO 07/10/23 02:20 2 mg ONCE STA Administration Meclizine HCl 25 mg 07/10/23 02:19 07/10/23 03:09 Meclizine Hcl 25 Mg Tablet PO 07/10/23 02:20 25 mg ONCE STA Administration Medical Decision Making Medical Decision Making MDM Narrative: 62-year-old male with a history of PTSD, vertigo, kidney stones and anxiety who presents emergency department for evaluation of dizziness and chest pain. The patient states that when he woke up yesterday morning he felt fine but after taking a nap in the late afternoon when he woke up he had dizziness which was worse with position change however dizziness was constant and persistent even when he was at rest. He also states he had blurred vision and he believes that he is having difficulty thinking and talking.Patient did did develop chest pain at 18:00 hours yesterday, the pain is been constant associated with shortness of breath and diaphoresis, pain does not radiate to his neck, jaw, arms or back. Vital signs did reveal an elevated blood pressure otherwise unremarkable. Physical examination revealed lateral nystagmus, slow oqnkac-fn-udax-to-finger and slow rapid finger movement. Had normal heel to mock but had difficulty standing secondary to feeling dizzy and off balance as needed to sit back on the stretcher. Differential diagnosis: ?Includes but is not limited to positional vertigo, cerebellar stroke, anxiety, myocardial infarction, myocardial ischemia, musculoskeletal pain, electrolyte abnormalities, anemia Following evaluation was ordered: CBC, CMP, troponin, COVID-19, influenza, RSV,, EKG Patient was initially treated with the following: Ativan 2 mg orally, meclizine 25 mg orally Course: 02:31 My interpretation patient's laboratory evaluation is as follows: CBC was normal. CMP revealed an elevated glucose of 134, low CO2 of 21 patient's 1st high sensitive troponin I at 01:00 hours is detectable but not elevated at 26.4, repeat troponin at 04:00 hours. Patient's COVID-19, RSV and influenza were negative. Twelve EKG did reveal a normal sinus rhythm with a rate of 69 he does have Q-waves in the anterior leads which is old but the Q-waves in the inferior leads are new. I am concerned that the patient's dizziness is persistent despite him not moving, dizziness is also associated with blurred vision and difficulty with word finding and slow speech. I did order a CT scan of the head to rule out bleed versus stroke. The patient will need to be admitted to further evaluate his symptoms to rule out possible cerebellar stroke as the cause. 04:14 CT scan of the brain revealed no acute findings to explain the patient's symptoms. Repeat troponin was 25.3 which was not significantly changed from initial troponin suggesting that he did not have myocardial injury or myocardial infarction is the cause of his chest pain open speech States that his dizziness did improve with the treatment however he still feels dizzy at rest. When he sat up on the stretcher and stood on the side of the bed again felt dizzy as he were moving. I did discuss admission over tiger text with the covering hospitalist, Dr. Moya. Admission/Observation Consideration of admission/observation: Escalation of care including admission/observation considered Lab Data MDM Lab Attestation statement: I reviewed the patient's lab results. 07/10/23 01:06 07/10/23 01:06 Labs: Lab Results 07/10/23 07/10/23 07/10/23 Range/Units 01:05 01:06 03:14 WBC 10.7 (4.8-10.8) X10*3/uL RBC 5.41 (4.60-5.80) X10*6/uL Hgb 16.4 (14.0-18.0) g/dl Hct 46.6 (42.0-52.0) % MCV 86.1 (80.0-98.0) fL MCH 30.3 (27.0-33.0) pg MCHC 35.2 (31.0-36.0) g/dl RDW 13.4 (11.0-16.0) % Plt Count 204 (160-400) X10*3/uL MPV 9.2 L (9.4-12.4) fL Immature Gran % (Auto) 0.4 (0.0-0.4) % Neut % (Auto) 80.0 H (45-73) % Lymph % (Auto) 13.5 L (20-40) % [place] % (Auto) 5.5 (2-11) % Eos % (Auto) 0.3 (0-4) % Baso % (Auto) 0.3 (0-2) % Lymph # (Auto) 1.5 (1.2-4.9) X10*3/uL [place] # (Auto) 0.6 (0.1-1.2) X10*3/uL Eos # (Auto) 0.0 (0.0-0.4) X10*3/uL Baso # (Auto) 0.0 (0.0-0.2) X10*3/uL Abs Immat Gran (auto) 0.04 H (0.00-0.03) X10*3/uL Absolute Neuts (auto) 8.6 H (2.0-8.3) x10*3/uL Absolute Nucleated RBC 0.000 (0.0-0.012) X10*3/uL Nucleated RBC % (auto) 0.0 (0.0-0.2) /100WBC Sodium 140 (135-145) mmol/L Potassium 4.1 (3.3-5.1) mmol/L Chloride 109 H (96-108) mmol/L Carbon Dioxide 21 L (22-29) mmol/L Anion Gap 14 (12-20) BUN 16 (9-16) mg/dL Creatinine 0.92 (0.5-1.4) mg/dL Estim Creat Clear Calc 89.2 Estimated GFR > 60 Random Glucose 134 H (60-115) mg/dL Calcium 9.3 D (8.4-10.2) mg/dL Total Bilirubin 0.7 (0.0-1.0) mg/dL AST 20 (5-37) U/L ALT 25 (0-40) U/L Alkaline Phosphatase 42 (39-117) U/L Troponin I High Sens 26.4 25.3 (<3.5-35.0) ng/L Total Protein 6.9 (6.5-8.0) g/dL Albumin 4.2 (3.5-5.0) g/dL Influenza Type A (PCR) NEGATIVE (Negative) Influenza Type B (PCR) NEGATIVE (Negative) RSV RNA Qual (PCR) NEGATIVE (Negative) SARS-CoV-2 RNA (RT-PCR) NEGATIVE (Negative) Independent Interpretation I performed an independent interpretation of an: EKG Interpretation: My independent interpretation patient's 12 EKG done at 00:45 hours is as follows: Normal sinus rhythm with a rate of 93, normal NE interval, QRS duration QTC interval, no ST segment elevation, no ST segment depression, Q-waves in 3, AVF, V1 through V3 inverted T-waves lead 3, no PACs, no PVCs. Compared to EKG dated 10/25/2020 the Q-waves in the anterior leads V1 through V2 were present, Q-waves in 3 and AVF for now new. Radiology Impression Discussion of test interpretation with radiology: I have reviewed the radiologist's reading. Radiologist Impression: CT head/brain wo IV con IMPRESSION: No acute intracranial pathology. Dictated By: Germán Gr Chronic Conditions Patient?s care impacted by: Other (Anxiety, PTSD) Discharge Plan Discharge Prescriptions: No Action atorvastatin 10 mg tablet 1 tab PO DAILY methocarbamol 750 mg tablet 2 tab PO TID omeprazole 20 mg Capsule,Delayed Release(Dr/Ec) 20 mg PO DAILY@0630 30 Days Qty: 30 0RF simethicone [Gas Relief (simethicone)] 80 mg Tablet,Chewable 80 mg PO QIDWMHS PRN (Reason: bloatin, Gas) Qty: 30 0RF escitalopram oxalate 10 mg Tablet 10 mg PO DAILY 30 Days Qty: 30 0RF triamcinolone acetonide 0.5 % Ointment 1 appl topical BID 7 Days 0RF metoclopramide HCl 5 mg Tablet 5 mg PO QIDACHS PRN (Reason: Nausea And Vomiting) 15 Days 0RF Print Language: Malaysian
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
--- OUTSIDE RECORDS SUMMARY | 2023-07-10 02:01 | XMS_ITS | Continuity of Care Document ---
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 Name Role Phone Chalino Armijo III, MD Primary Care Physician [place] [facility] [place]21[place]20 - 10/22/[address] [address]- Encounter Diagnosis Vesicular rash(Final) - 10/22/20 Erythema(Final) - 10/22/20 Discharge Disposition: A-D/C Home Attending Physician: Tavo Mckeon DO Admitting Physician: Tavo Mckeon DO Referring Physician: Not on Staff, Referring MD Allergies, Adverse Reactions, Alerts Substance Reaction Severity Status NKA Active Immunizations Given and Recorded Vaccine Date Status Refusal Reason pneumococcal 23-valent vaccine 09/15/15 Given Medications Adderall 20 mg oral tablet 1 tablet, By Mouth, Daily in AM, 0 Refills, Maintenance, Tablet Start Date: 05/25/11 Status: Ordered doxycycline hyclate 100 mg oral capsule 1 capsule = 100 mg, By Mouth, 2 times a day, for 10 days, # 20 capsule, 0 Refills, Acute 11/01/20 3:07:00 EDT, 10/22/20 3:07:00 EDT, Capsule, [id number], Partial fill upon patient request if the prescription is for a schedule II opioid drug.,... Start Date: 10/22/20 Stop Date: 11/01/20 Status: Ordered HYDROcodone 5mg/Acetaminophen 500mg Tablet 5-325 mg, By Mouth, Every 6 hours, 0 Refills, Maintenance, 06/29/20 10:01:00 EDT, Partial fill uponpatient request if the prescription is for a schedule II opioid drug. Start Date: 06/29/20 Status: Ordered hydrocortisone 1% topical cream 1 application, Topically, 2 times a day, for 3 days, # 15 Gm, 0 Refills, Acute 10/25/20 3:07:00 EDT, 10/22/20 3:07:00 EDT, Cream, [id number], Partial fill upon patient request if the prescription is for a schedule II opioid drug., 1 applicatio... Start Date: 10/22/20 Stop Date: 10/25/20 Status: Ordered Naproxen = 500 mg, By Mouth, 2 times a day, 0 Refills, Maintenance, 06/29/20 9:18:00 EDT, Partial fill upon patient request if the prescription is for a schedule II opioid drug. Start Date: 06/29/20 Status: Ordered Robaxin-750 750 mg oral tablet 2 tablet = 1,500 mg, By Mouth, 3 times a day, for 7 days, # 42 tablet, 0 Refills, Acute 10/29/20 3:07:00 EDT, 10/22/20 3:07:00 EDT, Tablet, [id number], Partial fill upon patient request if the prescription is for a schedule II opioid drug., 17... Start Date: 10/22/20 Stop Date: 10/29/20 Status: Ordered Problem List Condition Effective Dates Status Health Status Inform ant ADD (attention deficit disorder)(Confirmed) Active GERD (gastroesophageal reflu x disease)(Confirmed) Active Erectile dysfunction(Confirmed) Active Left rotator cuff tear(Confirmed) Active Hepatitis C virus infection(Confirmed) Active Results Radiology Reports * Exam Date Time Procedure Performing Provider Status 10/22/20 1:45 AM Knee 1 or 2 Views Left Jatinder , Lis wilson; Anh (Verified) Notes: (Knee 1 or 2 Views Left) Reason For Exam: with Pain;Effusion RESULT: Knee 1 or 2 Views Left Knee 1 or 2 Views Left, 2 views HX OF PRESENT ILLNESS: three days ago awoke with pain in left leg, multiple red damian to left leg and head, chills, headache, SOB feels dehydrated . Pt thinks they are spider bites. 6 days ago trimmed hedges where there are spiders; Reason: Effusion; with Pain; Clinical Question(s): Osteomyelitis COMPARISON: None. FINDINGS: There is no evidence of acute or healing fracture, dislocation or bone lesion. Mild medial compartment joint space narrowing. No evidence of joint effusion. IMPRESSION: No evidence of acute abnormality. WSN: [id number] Ordering Physician: Tavo Mckeon Dictated By: Thad Rust MD Dictated Date/Time: 10/22/20 7:55 am Reviewed By: Thad Rust MD Signed By: Thad Rust MD Signed Date/Time: 10/22/20 7:55 am Transcribed By: ANAND Transcribed Date/Time: 10/22/20 7:55 am Vital Signs Most recent to oldest [Reference Range]: 1 2 Height 173 cm (10/21/20 10:40 PM) Weight 90 kg (10/21/20 10:40 PM) Oxygen Saturation [94-100 %] 97 % (10/22/20 3:00 AM) 98 % (10/21/20 10:40 PM) Pulse Rate [55-90 bpm] 94 bpm *H* (10/22/20 3:00 AM) 106 bpm *H* (10/21/20 10:40 PM) Blood Pressure [90-138/55-84 mm Hg] 148/ 94mm Hg *H* (10/22/20 3:00 AM) 148/93mm Hg *H* (10/21/20 10:40 PM) Respiratory Rate [16-30 br/min] 19 br/mi n (10/22/20 3:00 AM) 18 br/min (10/21/20 10:40 PM) Temperature [96.8-100.4 DegF] 98.9 DegF (10/22/20 3:00 AM) 99.0 DegF (10/21/20 10:40 PM) Mode of Delivery (Oxygen) Room air (10/21/20 10:40 PM) Blood pressure sites Arm, right (10/21/20 10:40 PM) Temperature Route Oral (10/22/20 3:00 AM) Oral (10/21/20 10:40 PM) Dry Weight 90 kg (10/21/20 10:40 PM) Weight Obtained Via Patient/family state d (10/21/20 10:40 PM) Dry Weight Obtained Via Patient/family s tated (10/21/20 10:40 PM) Social History Social History Type Response Smoking Status Never smoker; Tobacc o user in household: No entered on: 01/12/16 Sex Male
[2023-07-10] MEDS: LORazepam 1 MG TABLET 2 MG PO (03:09)
[2023-07-10] MEDS: Meclizine HCl 25 MG TABLET PO (03:09)
--- NOTE | 2023-07-10 03:19 | PC.NURSE ---
pt passed swallow eval, medicated per apr. awaiting ct scan results. pt is calm/cooperative, watching videos on phone. call haider within reach.
[2023-07-10 03:38] LABS: Troponin-I High Sensitivity 25.3 ng/L (<3.5-35.0)
--- NOTE | 2023-07-10 06:25 | PM.IMHP ---
History of Present Illness Date of Service: 07/10/23 Chief Complaint: Vertigo This is a 62-year-old male with pertinent history of vertigo, mood disorder, mixed hyperlipidemia, gastroesophageal reflux disease who presents to the emergency department for evaluation of dizziness. Patient states he had sudden onset of dizziness when he woke up from his nap in the afternoon. It was associated with a sensation of room spinning. Patient states he has had vertigo in the past but it goes away in 1 hour. This time the vertigo was associated with head movement and at rest. It was constant and lasted until the patient got to the ER. Had difficulty walking which he states was due to the dizziness. Also had nausea and episode of blurred vision which resolved. Patient states that he also had chest discomfort in the evening which was bilateral, constant, not relieved with rest and not exacerbated with movement. No fever, chills, palpitations, shortness of breath, abdominal pain, changes in urinary or bowel habits. In the emergency department, CT head was was without acute abnormalities Review of Systems Constitutional: Constitutional: Reports no additional constitutional complaints ENT: Reports vertigo and Reports dizziness Cardiovascular: Cardiovascular: Reports chest pain Respiratory: Respiratory: Reports no additional respiratory complaints Gastrointestinal: Gastrointestinal: Reports nausea Genitourinary: Genitourinary: Reports no additional male genitourinary complaints Neurologic: Reports vertigo and Reports dizziness [facility] Medical History Anxiety disorder PTSD (post-traumatic stress disorder) Vertigo Pertinent family history: No family history of early CAD Surgical History H/O hernia repair History of cholecystectomy Social History Patient Tobacco Use Status: Never used Tobacco Advance Directives: No Advance Directives Information Provided: No Do you have a plan to hurt others: No Plan Current occupational status: employed Meds Allergies Allergy/AdvReac Type Severity Reaction Status Date / Time No Known Allergies Allergy Verified 07/10/23 00:55 Home Medications ?Medication ?Instructions ?Recorded ?Confirmed ?Last Taken ?Type atorvastatin 10 mg tablet 1 tab PO DAILY 10/25/20 10/25/20 Unknown History methocarbamol 750 mg tablet 2 tab PO TID 10/25/20 10/25/20 Unknown History Physical Exam Vital Signs and Narrative: Vital Signs: Last Vital Signs Temp 97.6 F 07/10/23 05:59 Pulse 86 07/10/23 05:59 Resp 16 07/10/23 05:59 BP 122/85 07/10/23 05:59 Pulse Ox 95 07/10/23 05:59 O2 Del Method Room Air 07/10/23 05:59 BMI result Body Mass Index 32.9 Middle-aged male lying in bed in no distress Neck supple, no JVD Regular rate and rhythm, S1-S2 heard Regular breath sounds bilaterally, no wheezing or crackles appreciated Abdomen soft nontender, no guarding, no rigidity Patient is awake, alert and oriented to self, place, time and person, nystagmus present, slow [id number] nose, unable to assess ambulation due to dizziness Psych: Normal mood No pedal edema Results Labs 07/10/23 01:06 07/10/23 01:06 Labs: Laboratory Results - last 24 hr 07/10/23 07/10/23 07/10/23 01:05 01:06 03:14 MCV 86.1 MCH 30.3 MCHC 35.2 RDW 13.4 Plt Count 204 MPV 9.2 L Immature Gran % (Auto) 0.4 Neut % (Auto) 80.0 H Lymph % (Auto) 13.5 L [place] % (Auto) 5.5 Eos % (Auto) 0.3 Baso % (Auto) 0.3 Lymph # (Auto) 1.5 [place] # (Auto) 0.6 Eos # (Auto) 0.0 Baso # (Auto) 0.0 Abs Immat Gran (auto) 0.04 H Absolute Neuts (auto) 8.6 H Absolute Nucleated RBC 0.000 Nucleated RBC % (auto) 0.0 Anion Gap 14 Estim Creat Clear Calc 89.2 Estimated GFR > 60 Random Glucose 134 H Calcium 9.3 D Total Bilirubin 0.7 AST 20 ALT 25 Alkaline Phosphatase 42 Troponin I High Sens 26.4 25.3 Total Protein 6.9 Albumin 4.2 Influenza Type A (PCR) NEGATIVE Influenza Type B (PCR) NEGATIVE RSV RNA Qual (PCR) NEGATIVE SARS-CoV-2 RNA (RT-PCR) NEGATIVE Imaging Radiologist's Impressions: Impressions Head CT 05/27/24 02:45 IMPRESSION: No acute intracranial pathology. Assessment and Plan (1) Vertigo: Status: Acute (2) Chest pain: Status: Acute Plan This is a 62-year-old male with pertinent history of vertigo, mood disorder, mixed hyperlipidemia, gastroesophageal reflux disease who presents to the emergency department for evaluation of dizziness. #. Vertigo, persistent: Will admit patient with cardiac monitoring and obtain MRI to rule out acute CVA. Administer aspirin. #. Chest pain, noncardiac: Troponin x2 negative. #. Mood disorder: Continue home mood stabilizers #. Mixed hyperlipidemia: On statin #. Gastroesophageal reflux disease: On PPI Med rec pending DVT prophylaxis: Lovenox Full code Quality Stroke Does the patient have a stroke diagnosis?: No VTE Prior VTE?: No VTE Risk Level:: Medical - moderate - high VTE Device Contraindication: Treatment Not Indicated VTE Drug Contraindication: N/A - Med Ordered
[2023-07-10] MEDS: Aspirin 81 MG TAB.CHEW 324 MG PO (06:44)
[2023-07-10] MEDS: Enoxaparin Sodium 40 MG/0.4 ML SYRINGE SUBCUT (07:47)
[2023-07-10] MEDS: 0.9 % Sodium Chloride Flush 3 ML SYRINGE IVFLUSH ×2 (07:51→16:27)
--- NOTE | 2023-07-10 07:55 | PC.NURSE ---
assumed care of this patient at 0700. denies any chest pressure or pain at this time. no dizziness while laying down. VSS
--- NOTE | 2023-07-10 09:34 | PHA.MEDREC ---
Pharmacy Consult ? Medication Reconciliation Pharmacy has completed the medication reconciliation.
--- NOTE | 2023-07-10 09:49 | P.CNNE_ITS ---
History of Present Illness Data of Consult Service Date: 07/10/23 Primary Care Provider: Chalino Armijo III, MD [facility] Reason for consult: Dizziness 62 years old man who apparently had history of word ago came to hospital after he had another attack of word ago when he woke up. Looking at emergency room notes, he mainly complained of dizziness and word ago without any other associated symptom. He was not febrile and did not have any headache or pain. He also had some behavioral issues and received couple of mg of lorazepam earlier today. When I saw him he was sedated because of that. Review of Systems 2 Review of Systems: No recent trauma or fall or cold or flu-like illness PMFSH Past Medical History Medical History Anxiety disorder PTSD (post-traumatic stress disorder) Vertigo Surgical History Surgical History H/O hernia repair History of cholecystectomy Social History Social History Patient Tobacco Use Status: Never used Tobacco Smoked in Last 30 Days: No Use of substances other than those prescribed or required for medical reasons: No Advance Directives: No Advance Directives Information Provided: No Do you have a plan to hurt others: No Plan Current occupational status: employed Meds Allergies Allergy/AdvReac Type Severity Reaction Status Date / Time No Known Allergies Allergy Verified 07/10/23 00:55 Active Medications: Current Medications Acetaminophen (Acetaminophen 325 Mg Tablet) 650 mg PO Q6H PRN PRN Reason: Pain, Mild (Pain Scale 1-3) Enoxaparin Sodium (Enoxaparin Sodium 40 Mg/0.4 Ml Syringe) 40 mg SUBCUT Q24H [facility] Last Admin: 07/10/23 07:47 Dose: 40 mg Melatonin (Melatonin 3 Mg Tablet) 6 mg PO BEDTIME PRN PRN Reason: Insomnia Ondansetron HCl (Ondansetron Hcl 4 Mg/2 Ml Vial) 4 mg IVPUSH Q8H PRN PRN Reason: Nausea and Vomiting Sodium Chloride (0.9 % Sodium Chloride Flush 3 Ml Syringe) 3 ml IVFLUSH QSHIFT [facility] Last Admin: 07/10/23 07:51 Dose: 3 ml Home Medications ?Medication ?Instructions ?Recorded ?Confirmed ?Last Taken ?Type dextroamphetamine-amphetamine 10 1 tab PO BID@0700,1200 07/10/23 07/10/23 Unknown History mg tablet Physical Exam 2 Vital Signs: Vital Signs: Last Vital Signs Temp 97.7 F 07/10/23 08:40 Pulse 80 07/10/23 08:40 Resp 14 07/10/23 08:40 BP 120/84 07/10/23 08:40 Pulse Ox 96 07/10/23 08:40 O2 Del Method Room Air 07/10/23 08:40 BMI result Body Mass Index 32.9 Neuro: Other: He was quite drowsy but I was able to wake him up. He made eye contact and try to talk to me. He was answering simple questions. He denied that he was in pain or had any headache. He also denied that he was dizzy. When I asked him where he was he knew that he was in [facility]. When I asked him why he was here, he kept on saying ?there were trying to do something?. Face was symmetrical. Visual lyn could not be determined. There was no obvious focal weakness. Plantars were flexor. Results Labs 07/10/23 01:06 07/10/23 01:06 Labs: Short CBC 07/10/23 Range/Units 01:06 WBC 10.7 (4.8-10.8) X10*3/uL Hgb 16.4 (14.0-18.0) g/dl Hct 46.6 (42.0-52.0) % Plt Count 204 (160-400) X10*3/uL BMP 07/10/23 01:06 Sodium 140 Potassium 4.1 Chloride 109 H Carbon Dioxide 21 L BUN 16 Creatinine 0.92 Calcium 9.3 D Liver Function 07/10/23 Range/Units 01:06 Total Bilirubin 0.7 (0.0-1.0) mg/dL AST 20 (5-37) U/L ALT 25 (0-40) U/L Alkaline Phosphatase 42 (39-117) U/L Albumin 4.2 (3.5-5.0) g/dL Noncontrast head CT revealed mild chronic microvascular ischemic disease. Assessment and Plan (1) Encephalopathy: Status: Acute 62 years old man who came to hospital with main complaint of word ago but when I saw him he had received couple of mg lorazepam making him drowsy. At this time he was encephalopathic but I am not sure if that is all due to lorazepam. A noncontrast MRI of brain is warranted to rule out any stroke or similar pathology. Otherwise, I would also consider behavioral disorder as the cause of some of his symptoms. Procedures Date of Service Date of Service: 07/10/23
--- NOTE | 2023-07-10 10:27 | PM.EVENT ---
Event Note Date of Service: 07/10/23 Event Note: pt admitted at 630 this morning, when I saw him he reported no vertigo but was rather drowsy, vital stable. exam unremakable. I requested Neuro eval and is scheduled for an MRI of the head, will continue to monitor. Med rec completed Time Spent With Patient Time: Total time managing care of this patient today ____ minutes.
--- NOTE | 2023-07-10 10:32 | MHC.SL.SWA ---
Risk of Aspiration Due to: Lethargy Dysphasia Diet Status: UPGRADE Liquid Consistency and Strategies for Safe Swallow: Liquid Intake Recommendation: Thin Solid Food Consistency: Dietary Recommendations: Regular Oral Medication Intake: Whole with Liquid Please contact the pharmacy regarding appropriate crushable or liquid drug formulations that are available whenever modified delivery is recommended. Compensatory Strategies and Precautions to be Taken for Safe Swallow: Sitting Upright (90 deg) Supervision While Eating and Drinking for Safe Swallow: Intermittent Supervision Recommendation for Speech: Inpatient Speech Therapy Comment: Recommend UPGRADE to REGULAR solids and THIN liquids. Pills WHOLE w/ LIQUID. Intermittent supervision. CHIP WASHER to f/u 1-2x to monitor toleration of diet. Patient denied difficulty word finding. None noted by CHIP WASHER, however patient produced limited speech. Patient undergoing workup for ?stroke. Evp And Chief Operating Officer Clinican/Clinical Fellow: No Supervisory Statement: I have reviewed and agree with the student/clinical fellow's documentation: N/A Speech Language Pathologist: Abiola Subramanian M.A., CCC-CHIP WASHER
--- NOTE | 2023-07-10 11:18 | MHC.CM.PN ---
JENNIFER 07/09. This CM met with pt to complete CM intake assessment. Pt minimally engaging with this CM, eyes closed and providing short responses. Pt lives at home alone, self-care, no DME, will arrange his own transportation home. PCP: Dr. Chalino Armijo
[2023-07-11] VITALS: BP 128/91; PULSE 86; RESP 18; TEMP 37.1; O2SAT 97
[2023-07-11] MEDS: Scopolamine 1.5 MG PATCH.TD.3 EAR-BEHIND (00:19)
[2023-07-11] MEDS: 0.9 % Sodium Chloride Flush 3 ML SYRINGE IVFLUSH ×2 (00:23→09:13)
[2023-07-11 03:47] VITALS: BP 132/76; PULSE 88; RESP 16; TEMP 36.8; O2SAT 94
--- NOTE | 2023-07-11 04:50 | P.EN_ITS ---
Event Note Date of Service: 07/11/23 Event Note: 07/10/23 - 10:58 pm - Contacted to notify patient is c/o dizziness. He was also questioning why he was still in the hospital and what the plan was for him. He was worried about his dog. It is home alone. I went to see the patient. He mentioned that if he turns his head to the right side while lying in bed he becomes dizzy. No other symptoms reported. I informed him about the results of the brain MRI which showed no strokes, bleeding or masses. I also gave him re assuring that his vertigo is likely benign. I did order scopolamine patch and Antivert as needed. He will likely need vestibular therapy. Time Spent With Patient Time: Total time managing care of this patient today ____ minutes.
[2023-07-11] MEDS: Amphetamine Mixed Salts 10 MG TABLET PO (06:12)
[2023-07-11 07:15] LABS: MANUAL DIFF FLAG NO
[2023-07-11 07:26] VITALS: BP 127/81; PULSE 68; RESP 18; TEMP 36.8; O2SAT 95
[2023-07-11 07:31] LABS: Basophils Percent Auto 0.4 % (0-2); Eosinophils Absolute Auto 0.1 X10*3/uL (0.0-0.4); Eosinophils Percent Auto 1.2 % (0-4); Hematocrit 46.3 % (42.0-52.0); Hemoglobin 15.7 g/dl (14.0-18.0); Imm Gran Abs Auto 0.04 X10*3/uL (0.00-0.03); Imm Gran Pct Auto 0.6 % (0.0-0.4); Lymphocytes Absolute Auto 2.5 X10*3/uL (1.2-4.9); Lymphocytes Percent Auto 37.1 % (20-40); Mean Corpuscular HGB Conc 33.9 g/dl (31.0-36.0); Mean Corpuscular Hemoglobin 30.4 pg (27.0-33.0); Mean Corpuscular Volume 89.6 fL (80.0-98.0); Mean Platelet Volume 9.4 fL (9.4-12.4); Monocytes Absolute Auto 0.5 X10*3/uL (0.1-1.2); Monocytes Percent Auto 7.2 % (2-11); Neutrophils Absolute Auto 3.6 x10*3/uL (2.0-8.3); Neutrophils Percent Auto 53.5 % (45-73); Platelet Count 179 X10*3/uL (160-400); Red Blood Count 5.17 X10*6/uL (4.60-5.80); Red Cell Distribution Width 13.5 % (11.0-16.0); White Blood Count 6.7 X10*3/uL (4.8-10.8)
[2023-07-11 07:44] LABS: Anion Gap 12 (12-20); Blood Urea Nitrogen 21 mg/dL (9-16); Calcium 8.5 mg/dL (8.4-10.2); Carbon Dioxide 26 mmol/L (22-29); Chloride 107 mmol/L (96-108); Estimated Glomerular Filt Rate > 60; Glucose Random 90 mg/dL (60-115); Potassium 4.1 mmol/L (3.3-5.1); Sodium 141 mmol/L (135-145)
--- NOTE | 2023-07-11 10:31 | PM.DS ---
DS: Providers Provider Date of Service: 07/11/23 Date of admission: 07/10/23 06:24 Primary care physician: Chalino Armijo III, MD Consults: 07/10/23 07:13 Consult to Neurology Routine Consulting Provider: [facility] Reason for consultation: acute vertigo Has provider been notified: No DS: Diagnosis Discharge Diagnosis (1) Encephalopathy: Status: Acute DS: Summary Hospital Course Hospital Course: admission hpi Chief Complaint: Vertigo This is a 62-year-old male with pertinent history of vertigo, mood disorder, mixed hyperlipidemia, gastroesophageal reflux disease who presents to the emergency department for evaluation of dizziness. Patient states he had sudden onset of dizziness when he woke up from his nap in the afternoon. It was associated with a sensation of room spinning. Patient states he has had vertigo in the past but it goes away in 1 hour. This time the vertigo was associated with head movement and at rest. It was constant and lasted until the patient got to the ER. Had difficulty walking which he states was due to the dizziness. Also had nausea and episode of blurred vision which resolved. Patient states that he also had chest discomfort in the evening which was bilateral, constant, not relieved with rest and not exacerbated with movement. No fever, chills, palpitations, shortness of breath, abdominal pain, changes in urinary or bowel habits. In the emergency department, CT head was was without acute abnormalities hospital course: The patient presented with symptoms of dizziness and vertigo. A CT scan of the head revealed no acute abnormalities. However, he experienced confusion and drowsiness after receiving Ativan. Neurology assessed him and suggested an MRI, which also showed no acute issues. He has had previous episodes of vertigo, particularly when turning to the left side, consistent with benign positional vertigo. Physical therapy evaluated him and recommended outpatient follow-up for therapeutic maneuvers. The patient is now clear-minded but has been advised to refrain from driving or operating heavy machinery until his symptoms completely resolve. Time Attestation Discharge Coordination Time (in mins): 35 Quality: Safe Use of Opioids Does Pt have an Active Cancer Diagnosis on the Problem List?: No Quality: Stroke Does the patient have a stroke diagnosis?: No Physical Exam Vital Signs: Vital Signs: Last Vital Signs Temp 98.3 F 07/11/23 07:26 Pulse 68 07/11/23 07:26 Resp 18 07/11/23 07:26 BP 127/81 07/11/23 07:26 Pulse Ox 95 07/11/23 07:26 O2 Del Method Room Air 07/11/23 07:26 BMI result Body Mass Index 31.9 DS: Data Data Completed and Pending Labs on day of discharge: Laboratory Results - last 24 hr 07/11/23 06:30 WBC 6.7 RBC 5.17 Hgb 15.7 Hct 46.3 MCV 89.6 MCH 30.4 MCHC 33.9 RDW 13.5 Plt Count 179 MPV 9.4 Immature Gran % (Auto) 0.6 H Neut % (Auto) 53.5 Lymph % (Auto) 37.1 [place] % (Auto) 7.2 Eos % (Auto) 1.2 Baso % (Auto) 0.4 Lymph # (Auto) 2.5 [place] # (Auto) 0.5 Eos # (Auto) 0.1 Baso # (Auto) 0.0 Abs Immat Gran (auto) 0.04 H Absolute Neuts (auto) 3.6 Absolute Nucleated RBC 0.000 Nucleated RBC % (auto) 0.0 Sodium 141 Potassium 4.1 Chloride 107 Carbon Dioxide 26 Anion Gap 12 BUN 21 H Creatinine 0.95 Estim Creat Clear Calc 85.0 Estimated GFR > 60 Random Glucose 90 Calcium 8.5 D Discharge Plan Discharge Anticipated Discharge Date/Time: 07/11/23 10:28 Patient Disposition: Home, Self-Care Discharge Diagnosis: Vertigo Referrals: Chalino Armijo III, MD [Primary Care Provider] - 1 Week Discharge Medications: New meclizine 12.5 mg tablet 12.5 mg PO TID PRN (Reason: vertigo) Qty: 9 0RF Continued dextroamphetamine-amphetamine 10 mg tablet 1 tab PO BID@0700,1200 Discharge Orders: Discharge Order (Routine); Ordered 07/11/23 Ordered By: Cesar Montgomery Diet: Advance to usual diet Activity on Discharge: As tolerated Stand Alone Forms: Patient Portal Discharge page Print Language: Bulgarian Care Plan Goals: recovery from bening positional vertigo Health Concerns: Bening positional Vertigo Plan of Treatment: follow up with Physical therapy on outpatient basis for therapeutic maneuvers Avoid driving or operating heavy machinery until your symptoms resolved and especially when taking Meclizine Take Meclizine as needed for vertigo--this can make you drowsy Assessment: See above
--- NOTE | 2023-07-11 10:47 | MHC.CM.PN ---
Pt is medically cleared for discharge home self-care, pt has arranged for his own transportation home.
[2023-07-11 11:34] VITALS: BP 133/73; PULSE 70; RESP 20; TEMP 37; O2SAT 98
== END 2023-07-11 12:24 | disposition home or self-care (01) ==
LOC: HO.ED 04:24 → HO.EDOVER 06:28 → HO.IMC 07:26
PROVIDERS: Admitting Provider Student in an Organized Health Care Education/Training Program; Emergency Provider Emergency Medicine Emergency Medical Services; PCP Internal Medicine; Visit Provider Internal Medicine
DX: G93.40 Encephalopathy, unspecified (principal); R42 Dizziness and giddiness; R07.9 Chest pain, unspecified; F39 Unspecified mood [affective] disorder; K21.9 Gastro-esophageal reflux disease without esophagitis; R41.0 Disorientation, unspecified; E78.2 Mixed hyperlipidemia; Z03.818 Encounter for observation for suspected exposure to other biological agents ruled out
CPT/HCPCS: 0241U; 36415; 70450; 70551; 80048; 80053; 84484; 85025; 92610; 93005; 96372; 97161; 99222; 99285; J1650

== ENCOUNTER → 2023-07-10 00:45 | Outpatient (BNV) | payer MEDICARE, SELFPAY | PROVIDERS: Admitting Provider Student in an Organized Health Care Education/Training Program; Emergency Provider Emergency Medicine Emergency Medical Services; PCP Internal Medicine; Visit Provider Internal Medicine Cardiovascular Disease | DX: R07.9 Chest pain, unspecified (principal) | CPT/HCPCS: 93010 ==

== ENCOUNTER → 2023-07-10 06:24 | Outpatient (BNV) | payer MEDICARE, SELFPAY | PROVIDERS: Admitting Provider Student in an Organized Health Care Education/Training Program; Emergency Provider Emergency Medicine Emergency Medical Services; PCP Internal Medicine; Visit Provider Student in an Organized Health Care Education/Training Program | DX: G93.40 Encephalopathy, unspecified (principal) | CPT/HCPCS: 99222; 99239; 99499 ==

== ENCOUNTER → 2023-07-10 06:24 | Outpatient (BNV) | payer MEDICARE, SELFPAY | PROVIDERS: Admitting Provider Student in an Organized Health Care Education/Training Program; Emergency Provider Emergency Medicine Emergency Medical Services; PCP Internal Medicine; Visit Provider Psychiatry & Neurology Neurology | DX: G93.40 Encephalopathy, unspecified (principal) | CPT/HCPCS: 99222 ==

== ENCOUNTER 2024-04-22 05:37 | Emergency (ER) | payer MEDICARE, SELFPAY ==
[2024-04-22 05:41] VITALS: BP 144/97; PULSE 101; RESP 18; TEMP 36.4; O2SAT 94; BMI 28.9
--- OUTSIDE RECORDS SUMMARY | 2024-04-22 06:01 | XMS_ITS | Clinical Summary ---
Author Organization [facility] Address [address] [place] [address] Care Team Providers Care Seam Stay Stitcher Name Role Phone Unavailable Primary Care Provider Unavailabl e Immunizations Name Administration Dates Next Due Influenza,injectable,quad,Prsrv Fr 01/18/2016 Influenza,seasonal,trivalent,preservative (FLUZO NE MDV) 11/24/2014 Td (adult), 5 Lf tetanus tox oid, preservative free, adsorbed 10/15/2012 Social History Tobacco Use Types Packs/Day Years Used Date Smoking Tobacco: Never Assessed Sex and Gender Information Value Date Recorded Sex Assigned at Not on file Legal Sex Male 1:11 AM EDT Gender Identity Not on file Sexual Orientation Not on file Plan of Treatment Health Maintenance Due Date Last Done Comments Hepatitis C Screening 1960 Pneumococcal 50+ years (1 of 1 - PCV) 2008 Zoster (Shingrix) (1 of 2) 2008 DTaP/Tdap/Td (1 - Tdap) 10/16/2012 10/15/2012 COVID-19 Vaccine ( - 2023-2 5 season) 2023 Influenza (#1) 2023 01/18/2016, 11/24/2014 RSV (1 - 1-dose 75+ series) 2033 Abdominal Aorta Imaging Discontinued HPV Vaccine Aged Out No longer eligi ble based on patient's age to complete this topic Hep A Aged Out No longer eligi ble based on patient's age to complete this topic Hep B Aged Out No longer eligi ble based on patient's age to complete this topic Hib Aged Out No longer eligi ble based on patient's age to complete this topic Meningococcal ACWY Aged Out No longer eligible based on patient's age to complete this topic Zoster (Zostavax) Discontinued
--- NOTE | 2024-04-22 06:29 | ED.GENADULT ---
HPI - General Adult General Chief complaint: Anxiety Stated complaint: previous nose blled, feeling dizzy Time Seen by Provider: 04/22/24 06:28 Source: patient, RN notes reviewed and old records reviewed Mode of arrival: ambulatory Limitations: no limitations History of Present Illness ED Provider: Vonnie [facility] narrative: Patient is a 63-year-old male with history of PTSD, anxiety, vertigo presenting to the emergency department stating that earlier this morning he was in the shower and began having a panic attack, then began to have a nosebleed. Bleeding spontaneously resolved while in the shower. Reports multiple recent stressors, has been caring for elderly aunt who is losing her house, also found out sister has been stealing from him and his aunt. Reports ongoing anxiety here. No bleeding at this time. Denies chest pain, dyspnea, abdominal pain, nausea. complaint: anxiety, epistaxis Onset (ago): hour(s) Treatments prior to arrival: none Related Data Home Medications ?Medication ?Instructions ?Recorded ?Confirmed dextroamphetamine-amphetamine 10 1 tab PO BID@0700,1200 07/10/23 07/10/23 mg tablet Previous Rx's ?Medication ?Instructions ?Recorded meclizine 12.5 mg tablet 12.5 mg PO TID PRN vertigo #9 tabs 07/11/23 Allergies Allergy/AdvReac Type Severity Reaction Status Date / Time No Known Allergies Allergy Verified 04/22/24 05:47 Review of Systems Review of Systems: As per HPI Yes all other systems are reviewed and are negative Constitutional: Constitutional: Reports as per HPI [facility] Past Medical History Medical History Anxiety disorder PTSD (post-traumatic stress disorder) Vertigo Surgical History H/O hernia repair History of cholecystectomy Social History Social History Patient Tobacco Use Status: Never used Tobacco Advance Directives: No Advance Directives Information Provided: Yes service: No Current occupational status: employed Physical Exam ED Vital Signs: Vital Signs - 24 hr 04/22/24 05:41 Temperature 97.5 F Pulse Rate 101 H Respiratory Rate 18 Blood Pressure 144/97 H Pulse Oximetry 94 Oxygen Delivery Method Room Air BMI result Body Mass Index 28.9 Vital signs have been reviewed and appear to be correct. Blood pressure elevated. Heart rate slightly tachycardic. Respiratory rate normal. Temperature normal. Oxygen saturation normal. Const General: cooperative, healthy appearing and no acute distress Orientation/consciousness: oriented to person, oriented to place, oriented to time and patient oriented x3 Limitations: no limitations HENMT Head: Yes normocephalic and Yes atraumatic Ears: external ears normal General nose exam: Normal external nose present, Normal nasal mucous membranes and turbinates present, Normal septum present, No nasal discharge present and no epistaxis Face and sinus: Yes face symmetric Mouth: oropharynx normal and moist mucous membranes Throat: Yes posterior oropharynx normal and Yes uvula midline Eyes Pupils: Equal, round and reactive pupils present Neck Neck: Yes normal visual inspection and Yes supple Resp Effort & Inspection: normal respiratory effort and able to speak in complete sentences Auscultation: clear to auscultation bilaterally Cardio Rate: regular rate Rhythm: regular rhythm Heart sounds: S1 normal heart sound present and S2 normal heart sound present GI Palpation (GI): Soft to palpation and nontender Auscultation: normoactive bowel sounds General: Yes no CVA tenderness Back/Spine/Pelvis Back: no CVA tenderness Skin General skin exam: elasticity normal and turgor normal Neuro General: oriented to person, oriented to place, oriented to time, patient oriented x3, moves all extremities, no focal motor deficits and CN's II-XI intact bilaterally Cranial nerves: Yes Equal, round and reactive pupils present Cognition (Neuro): normal cognition Extrem General: Yes full ROM, Yes no pedal edema and Yes no calf tenderness Psych Mental Status: mental status grossly normal Affect: normal affect Thought process: Normal thought process present Medical Decision Making Medical Decision Making MDM Narrative: Patient is a 63-year-old male with history of PTSD, anxiety, vertigo presenting to the emergency department stating that earlier this morning he was in the shower and began having a panic attack, then began to have a nosebleed. On exam patient is awake, A+Ox3, VS WNL, afebrile, normal neurological exam without focal deficits, physical exam findings as above. Given reported symptoms and physical exam findings, initial differential includes but is not limited to epistaxis, anemia, acute anxiety. Less likely ACS, however, patient states he is concerned about his heart, will get EKG and check troponin. Labs notable for slightly elevated troponin, repeat flat. EKG shows NSR. No epistaxis while patient in the ED. Feel patient is stable for discharge home. He states that he does have an outpatient therapist. Denies suicidal or homicidal ideation. Advised to follow up with therapist and PCP. Return precautions discussed. Patient verbalized understanding of and agreement with plan. Differential Diagnosis Differential Diagnoses: The differential diagnosis associated with the presentation includes As per [facility] Admission/Observation Consideration of admission/observation: Escalation of care including admission/observation considered Patient would have been admitted to the hospital had their work up had any findings where hospital admission was appropriate and their clinical presentation warranted hospital admission. Lab Data [facility] Lab Attestation statement: I reviewed the patient's lab results. As per [facility] 04/22/24 06:47 04/22/24 06:47 Labs: Lab Results 04/22/24 04/22/24 Range/Units 06:47 08:21 WBC 7.8 (4.8-10.8) X10*3/uL RBC 5.03 (4.60-5.80) X10*6/uL Hgb 15.2 (14.0-18.0) g/dl Hct 44.6 (42.0-52.0) % MCV 88.7 (80.0-98.0) fL MCH 30.2 (27.0-33.0) pg MCHC 34.1 (31.0-36.0) g/dl RDW 13.8 (11.0-16.0) % Plt Count 203 (160-400) X10*3/uL MPV 9.5 (9.4-12.4) fL Immature Gran % (Auto) 0.5 H (0.0-0.4) % Neut % (Auto) 61.8 (45-73) % Lymph % (Auto) 26.7 (20-40) % [place] % (Auto) 8.7 (2-11) % Eos % (Auto) 1.9 (0-4) % Baso % (Auto) 0.4 (0-2) % Lymph # (Auto) 2.1 (1.2-4.9) X10*3/uL [place] # (Auto) 0.7 (0.1-1.2) X10*3/uL Eos # (Auto) 0.2 (0.0-0.4) X10*3/uL Baso # (Auto) 0.0 (0.0-0.2) X10*3/uL Abs Immat Gran (auto) 0.04 H (0.00-0.03) X10*3/uL Absolute Neuts (auto) 4.8 (2.0-8.3) x10*3/uL Absolute Nucleated RBC 0.000 (0.0-0.012) X10*3/uL Nucleated RBC % (auto) 0.0 (0.0-0.2) /100WBC Sodium 141 (135-145) mmol/L Potassium 4.2 (3.3-5.1) mmol/L Chloride 112 H (96-108) mmol/L Carbon Dioxide 22 (22-29) mmol/L Anion Gap 11 L (12-20) BUN 21 H (9-16) mg/dL Creatinine 0.97 (0.5-1.4) mg/dL Estim Creat Clear Calc 81.0 Estimated GFR > 60 Random Glucose 124 H (60-115) mg/dL Calcium 9.1 D (8.4-10.2) mg/dL Total Bilirubin 0.3 (0.0-1.0) mg/dL AST 23 (5-37) U/L ALT 27 (0-40) U/L Alkaline Phosphatase 48 (39-117) U/L Troponin I High Sens 35.9 H 35.3 H (<3.5-35.0) ng/L Total Protein 7.0 (6.5-8.0) g/dL Albumin 4.2 (3.5-5.0) g/dL Independent Interpretation I performed an independent interpretation of an: EKG (normal sinus rhythm, rate 90bpm, normal MS interval and QTc, no significant changes from prior) External Record Review External record reviewed: Inpatient record, Office record and Outpatient record Discharge Plan Discharge Clinical Impression: Acute anxiety, Epistaxis Patient Disposition: Elopement Instructions: Nosebleed (ED), Anxiety (ED) Additional Instructions: You were evaluated in the emergency department today for a nosebleed which stopped prior to arrival as well as anxiety. Your evaluation did not reveal evidence of medical conditions requiring emergent treatment at this time. We recommend that you follow up with your primary care provider this week. Return to the emergency department if you develop bleeding that cannot be controlled, chest pain, shortness of breath or difficulty breathing or any other new or concerning symptoms. Prescriptions: No Action dextroamphetamine-amphetamine 10 mg tablet 1 tab PO BID@0700,1200 meclizine 12.5 mg tablet 12.5 mg PO TID PRN (Reason: vertigo) Qty: 9 0RF Print Language: Romanian
--- NOTE | 2024-04-22 06:30 | ECG_ITS ---
Test Reason : tachy Blood Pressure : */* mmHG Vent. Rate : 90 BPM Atrial Rate : 90 BPM P-R Int : 144 ms QRS Dur : 76 ms QT Int : 390 ms P-R-T Axes : * -6 0 degrees QTcB Int : 477 ms Normal sinus rhythm Low voltage QRS Septal infarct (cited on or before 25-Oct-2020) Abnormal ECG When compared with ECG of 10-Jul-2023 00:45, No significant change was found Referred By: Erlinda Shankar Electronically Signed By: LAURA KOENIG
[2024-04-22 06:54] LABS: MANUAL DIFF FLAG NO
[2024-04-22 07:08] LABS: Basophils Percent Auto 0.4 % (0-2); Eosinophils Absolute Auto 0.2 X10*3/uL (0.0-0.4); Eosinophils Percent Auto 1.9 % (0-4); Hematocrit 44.6 % (42.0-52.0); Hemoglobin 15.2 g/dl (14.0-18.0); Imm Gran Abs Auto 0.04 X10*3/uL (0.00-0.03); Imm Gran Pct Auto 0.5 % (0.0-0.4); Lymphocytes Absolute Auto 2.1 X10*3/uL (1.2-4.9); Lymphocytes Percent Auto 26.7 % (20-40); Mean Corpuscular HGB Conc 34.1 g/dl (31.0-36.0); Mean Corpuscular Hemoglobin 30.2 pg (27.0-33.0); Mean Corpuscular Volume 88.7 fL (80.0-98.0); Mean Platelet Volume 9.5 fL (9.4-12.4); Monocytes Absolute Auto 0.7 X10*3/uL (0.1-1.2); Monocytes Percent Auto 8.7 % (2-11); Neutrophils Absolute Auto 4.8 x10*3/uL (2.0-8.3); Neutrophils Percent Auto 61.8 % (45-73); Platelet Count 203 X10*3/uL (160-400); Red Blood Count 5.03 X10*6/uL (4.60-5.80); Red Cell Distribution Width 13.8 % (11.0-16.0); White Blood Count 7.8 X10*3/uL (4.8-10.8)
[2024-04-22 07:25] LABS: Alanine Aminotransferase 27 U/L (0-40); Albumin Level 4.2 g/dL (3.5-5.0); Alkaline Phosphatase 48 U/L (39-117); Anion Gap 11 (12-20); Aspartate Amino Transferase 23 U/L (5-37); Bilirubin Total 0.3 mg/dL (0.0-1.0); Blood Urea Nitrogen 21 mg/dL (9-16); Calcium 9.1 mg/dL (8.4-10.2); Carbon Dioxide 22 mmol/L (22-29); Chloride 112 mmol/L (96-108); Estimated Glomerular Filt Rate > 60; Glucose Random 124 mg/dL (60-115); Potassium 4.2 mmol/L (3.3-5.1); Sodium 141 mmol/L (135-145)
[2024-04-22 07:33] LABS: Troponin-I High Sensitivity 35.9 ng/L (<3.5-35.0)
[2024-04-22 08:00] VITALS: BP 145/69; PULSE 88; RESP 18; TEMP 36.4; O2SAT 97
[2024-04-22 08:48] LABS: Troponin-I High Sensitivity 35.3 ng/L (<3.5-35.0)
[2024-04-22 10:01] VITALS: BP 145/69; PULSE 88; RESP 18; TEMP 36.4; O2SAT 97
== END 2024-04-22 10:02 | disposition home or self-care (01) ==
PROVIDERS: Registered Nurse Emergency; Emergency Provider Student in an Organized Health Care Education/Training Program; PCP Internal Medicine
DX: F41.9 Anxiety disorder, unspecified (principal); R04.0 Epistaxis; R42 Dizziness and giddiness; F43.10 Post-traumatic stress disorder, unspecified
CPT/HCPCS: 36415; 80053; 84484; 85025; 93005; 99283; 99284

== ENCOUNTER → 2024-04-22 06:30 | Outpatient (BNV) | payer MEDICARE, SELFPAY | PROVIDERS: Emergency Provider Student in an Organized Health Care Education/Training Program; PCP Internal Medicine; Visit Provider Internal Medicine | DX: I25.2 Old myocardial infarction (principal) | CPT/HCPCS: 93010 ==